=== PATIENT | male | born 1935 | race Caucasian/White ===

== ENCOUNTER 2016-11-17 14:11 | Emergency (ER) | payer MEDICARE, BC ==
[2016-11-17 16:16] LABS: Albumin 4.1 g/dL (3.2-5.2); C Reactive Protein 1.02 mg/L (< 5.00); Calcium 9.6 mg/dL (8.6-10.3); EGFR African American 91.8 (>60); EGFR Non-African American 71.4 (>60); Globulin 2.8 g/dL (2-4); Potassium 4.2 mmol/L (3.5-5.0); Total Bilirubin 0.6 mg/dL (0.2-1.0); Total Protein 6.9 g/dL (6.4-8.9)
[2016-11-17 16:21] LABS: Hematocrit 36 % (42-52); Hemoglobin 12.2 g/dl (14.0-18.0); Mean Corpuscular HGB Conc 34 g/dl (31-36); Mean Corpuscular Hemoglobin 31 pg (27-31); Mean Corpuscular Volume 91 fL (80-94); Mean Platelet Volume 9 um3 (7.4-10.4); Red Blood Count 3.94 10^6/ul (4.0-5.4); Red Cell Distribution Width 14 % (10.5-15); White Blood Count 6.2 10^3/ul (3.5-10.8)
[2016-11-17 17:28] VITALS: BP 164/94
--- NOTE | 2016-11-17 22:13 | ED ---
Tyree Higginbotham Erika, scribed for Gurpreet Seaman MD on 11/17/16 at 1458 . GI/ HPI - HPI Summary HPI Summary: Patient is an 81-year-old male presenting to the ED with a CC of rectal bleeding. Patient reports he had light spotting starting about 1 month ago. Today, patient had a more persistent episode of bleeding. He states he has rectal bleeding with stools, but the blood is not mixed in with the stool. Patient denies any pain or any other symptoms. He reports that he has noticed some blood in stool since starting cancer treatments. Pt has prostate CA, and finished radiation therapy in March 2016. He states he started hormone therapy in March 2016. Pt is followed by Dr. Hopper. Pt does report some leakage of stool at baseline, so he wears a diaper. Pt also reports he is on a blood thinner, which was change in May 2016 after a RLE angioplasty. Pt does not take prednisone. He notes he has an appointment with Dr. Dewey ( urology) scheduled for early November 2016. - History of Current Complaint Chief Complaint: EDGIBleed Time Seen by Provider: 11/17/16 14:47 Stated Complaint: RECTAL BLEEDING Hx Obtained From: Patient Onset/Duration: Started Weeks Ago, Atraumatic, Worse Since - today Timing: Intermittent Severity: Moderate Pain Intensity: 0 Associated Signs and Symptoms: Positive: Negative Aggravating Factor(s): Bowel Movement - Allergy/Home Medications Allergies/Adverse Reactions: Allergies Allergy/AdvReac Type Severity Reaction Status Date / Time Clopidogrel [From Plavix] Allergy SEIZURES Verified 12/15/15 13:14 PMH/Surg Hx/FS Hx/Imm Hx Endocrine/Hematology History: Denies: Hx Diabetes Cardiovascular History: Denies: Hx Congestive Heart Failure, Hx Hypertension, Hx Pacemaker/ICD History: Denies: Hx Renal Disease Sensory History: Denies: Hx Hearing Aid Psychiatric History: Denies: Hx Panic Disorder - Cancer History Cancer Type, Location and Year: TESTICULAR. PROSTATE Hx Chemotherapy: Yes Hx Radiation Therapy: Yes - Surgical History Surgery Procedure, Year, and Place: LYMPH NODE REMOVAL 1965 AND. 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 PERIPHERAL STENTING - Rt LEG - 3 STENTS PLACED (OK'D BY DR JAY). CATARACT - RUDOLPH LENS Infectious Disease History: No Infectious Disease History: Denies: Traveled Outside the [place] in Last 30 Days - Family History Known Family History: Negative: Cardiac Disease, Hypertension, Diabetes - Social History Alcohol Use: None Hx Substance Use: No Substance Use Type: Reports: None Hx Tobacco Use: No Smoking Status (MU): Never Smoked Tobacco Review of Systems Gastrointestinal: Other - Rectal bleeding Negative: Arthralgia, Myalgia All Other Systems Reviewed And Are Negative: Yes Physical Exam Triage Information Reviewed: Yes Vital Signs On Initial Exam: Initial Vitals Temp Pulse Resp BP Pulse Ox 98.1 F 66 17 153/87 99 11/17/16 14:12 11/17/16 14:12 11/17/16 14:12 11/17/16 14:12 11/17/16 14:12 Vital Signs Reviewed: Yes Appearance: Positive: Well-Appearing, No Pain Distress Skin: Positive: Warm, Skin Color Reflects Adequate Perfusion, Dry Head/Face: Positive: Normal Head/Face Inspection Eyes: Positive: Normal ENT: Positive: Normal ENT inspection Neck: Positive: Supple, Nontender Respiratory/Lung Sounds: Positive: Clear to Auscultation, Breath Sounds Present Cardiovascular: Positive: RRR Abdomen Description: Positive: Nontender, Soft Bowel Sounds: Positive: Present Male Genital Exam: Positive: other - No hemorrhoids Musculoskeletal: Positive: Normal Neurological: Positive: Normal Psychiatric: Positive: Affect/Mood Appropriate Diagnostics - Vital Signs Vital Signs Temp Pulse Resp BP Pulse Ox 11/17/16 14:12 98.1 F 66 17 153/87 99 - Laboratory Lab Results: Lab Results 11/17/16 11/17/16 Range/Units 15:55 15:55 WBC 6.2 (3.5-10.8) 10^3/ul RBC 3.94 L (4.0-5.4) 10^6/ul Hgb 12.2 L (14.0-18.0) g/dl Hct 36 L (42-52) % MCV 91 (80-94) fL MCH 31 (27-31) pg MCHC 34 (31-36) g/dl RDW 14 (10.5-15) % Plt Count 182 (150-450) 10^3/ul MPV 9 (7.4-10.4) um3 Neut % (Auto) 70.5 (38-83) % Lymph % (Auto) 16.0 L (25-47) % [place] % (Auto) 9.3 H (1-9) % Eos % (Auto) 3.8 (0-6) % Baso % (Auto) 0.4 (0-2) % Absolute Neuts (auto) 4.4 (1.5-7.7) 10^3/ul Absolute Lymphs (auto) 1.0 (1.0-4.8) 10^3/ul Absolute Monos (auto) 0.6 (0-0.8) 10^3/ul Absolute Eos (auto) 0.2 (0-0.6) 10^3/ul Absolute Basos (auto) 0 (0-0.2) 10^3/ul Absolute Nucleated RBC 0 10^3/ul Nucleated RBC % 0 Sodium 137 (133-145) mmol/L Potassium 4.2 (3.5-5.0) mmol/L Chloride 107 (101-111) mmol/L Carbon Dioxide 24 (22-32) mmol/L Anion Gap 6 (2-11) mmol/L BUN 16 (6-24) mg/dL Creatinine 1.00 (0.67-1.17) mg/dL Est GFR ( Amer) 91.8 (>60) Est GFR (Non-Af Amer) 71.4 (>60) BUN/Creatinine Ratio 16.0 (8-20) Glucose 89 (70-100) mg/dL Calcium 9.6 (8.6-10.3) mg/dL Total Bilirubin 0.60 (0.2-1.0) mg/dL AST 18 (13-39) U/L ALT 18 (7-52) U/L Alkaline Phosphatase 57 (34-104) U/L C-Reactive Protein 1.02 (< 5.00) mg/L Total Protein 6.9 (6.4-8.9) g/dL Albumin 4.1 (3.2-5.2) g/dL Globulin 2.8 (2-4) g/dL Albumin/Globulin Ratio 1.5 (1-3) Result Diagrams: 11/17/16 15:55 11/17/16 15:55 Lab Statement: Any lab studies that have been ordered have been reviewed, and results considered in the medical decision making process. Re-Evaluation - Re-Evaluation First Eval Re-Evaluation Time: 17:10 Comment: Lab results discussed. Discussed Dr. Hua's recommendations and plan for follow up with patient. GIGU Course/Dx - Course Course Of Treatment: Mr. Biswas has been having some rectal bleeding on and off for several weeks. It was particularily bad earlier today but seems to have slowed now. He had irradiation about 4-5 months ago for prostate CA and this may be proctitis. I spoke with Dr. Hua who is willing to follow him and cauterize if necessary. He will need to follow with cardiology first as he is on plavix. He will return if his bleeding increases. - Diagnoses Provider Diagnoses: Rectal bleed - Physician Notifications Discussed Care Of Patient With: Dr. Marie (oncology) at 15:54 - discussed case and treatments. Recommends GI consult. Dr. Hua (GI) at 16:58 - discussed case. will follow up with patient Discharge - Discharge Plan Condition: Stable Disposition: HOME Patient Education Materials: Rectal Bleeding (ED) Referrals: Bryan Haro DO [Primary Care Provider] - Chidi Hua MD [Medical Doctor] - Additional Instructions: Please follow up with your live out nanny first to discuss blood thinner. Then, follow up with Dr. Hua to consider colonoscopy. The documentation as recorded by the Tyree salinas Erika accurately reflects the service I personally performed and the decisions made by me, Gurpreet Seaman MD.
== END 2016-11-17 17:27 | disposition home or self-care (01) ==
LOC: ED 14:11
DX: K62.5 Hemorrhage of anus and rectum (principal); C61 Malignant neoplasm of prostate; Z79.02 Long term (current) use of antithrombotics/antiplatelets
CPT/HCPCS: 36415; 80053; 85025; 86140; 99282

== ENCOUNTER 2017-01-09 18:50 | Emergency (ER) | payer MEDICARE, BC ==
--- NOTE | 2017-01-09 21:38 | RAD ---
INDICATION: Fever COMPARISON: None TECHNIQUE: PA and lateral views of the chest were obtained. FINDINGS: The heart and mediastinum are normal in size and contour. The lungs are grossly clear. There is no evidence of large pleural effusion. Visualized bones are normal for the patient's age. There is no radiographic evidence of free air beneath the diaphragm IMPRESSION: No radiographic evidence of acute cardiopulmonary disease.
--- NOTE | 2017-01-09 21:41 | ED ---
Nazanin Higginbotham Salem, scribed for Lj Gentile MD on 01/09/17 at 2115 . HPI Febrile Illness - HPI Summary HPI Summary: Patient is a 81 y/o M who presents to the ED from doctors office with fever for the past 3 days. He reports that PCP requested further evaluation, CXR, and blood work. Pt states that he has been shaking for the past week and has had an intermittent fever of 102F. He denies a cough or SOB. He also denies taking any medication for sx. PMHx of prostate cancer and radiation therapy. - History of Current Complaint Chief Complaint: EDFever Time Seen by Provider: 01/09/17 21:01 Hx Obtained From: Patient, Family/[employer]ant [employer] Onset/Duration: Started Days Ago, Atraumatic, Still Present Timing: Intermittent, Lasting Days Initial Severity: Moderate Current Severity: Moderate Pain Intensity: 0 Pain Scale Used: 0-10 Numeric Aggravating Factors: Nothing Alleviating Factors: Nothing Associated Signs and Symptoms: Other: - Shakes. - Allergy/Home Medications Allergies/Adverse Reactions: Allergies Allergy/AdvReac Type Severity Reaction Status Date / Time Clopidogrel [From Plavix] Allergy SEIZURES Verified 12/15/15 13:14 Home Medications: Home Medications Atorvastatin* [Lipitor 20 MG*] 20 mg PO DAILY 01/09/17 [History Confirmed ] Brilinta 90 MG* 90 mg PO DAILY 01/09/17 [History Confirmed 01/09/17] Canasa SUPP (NF) 1,000 mg GA DAILY 01/09/17 [History Confirmed 01/09/17] Cholecalciferol 1,000 units PO DAILY 01/09/17 [History Confirmed 01/09/17] Docusate Calcium [Stool Softener] 240 mg PO 01/09/17 [History] PMH/Surg Hx/FS Hx/Imm Hx Endocrine/Hematology History: Denies: Hx Diabetes Cardiovascular History: Denies: Hx Congestive Heart Failure, Hx Hypertension, Hx Pacemaker/ICD History: Denies: Hx Renal Disease Sensory History: Denies: Hx Hearing Aid Psychiatric History: Denies: Hx Panic Disorder - Cancer History Cancer Type, 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 PERIPHERAL STENTING - Rt LEG - 3 STENTS PLACED (OK'D BY DR JAY). CATARACT - RUDOLPH LENS Infectious Disease History: No Infectious Disease History: Denies: Traveled Outside the [place] in Last 30 Days - Family History Known Family History: Negative: Cardiac Disease, Hypertension, Diabetes - Social History Alcohol Use: None Hx Substance Use: No Substance Use Type: Reports: None Hx Tobacco Use: No Smoking Status (MU): Never Smoked Tobacco Review of Systems Positive: Fever, Other - Shaking. Negative: Shortness Of Breath, Cough All Other Systems Reviewed And Are Negative: Yes Physical Exam Triage Information Reviewed: Yes Vital Signs On Initial Exam: Initial Vitals Temp Pulse Resp BP Pulse Ox 97.8 F 90 20 115/74 96 01/09/17 18:55 01/09/17 18:55 01/09/17 18:55 01/09/17 18:55 01/09/17 18:55 Vital Signs Reviewed: Yes Appearance: Positive: Well-Appearing, No Pain Distress Skin: Positive: Warm Head/Face: Positive: Normal Head/Face Inspection Eyes: Positive: KALI ENT: Positive: Hearing grossly normal Neck: Positive: Supple Respiratory/Lung Sounds: Positive: Clear to Auscultation, Breath Sounds Present Cardiovascular: Positive: RRR Abdomen Description: Positive: Nontender, Soft Bowel Sounds: Positive: Present Musculoskeletal: Positive: Strength/ROM Intact Neurological: Positive: Alert, Oriented to Person Place, Time Psychiatric: Positive: Affect/Mood Appropriate Diagnostics - Vital Signs Vital Signs Temp Pulse Resp BP Pulse Ox 01/09/17 20:10 98.9 F 89 15 103/65 97 01/09/17 18:55 97.8 F 90 20 115/74 96 - Laboratory Result Diagrams: 01/09/17 21:36 01/09/17 21:36 Lab Statement: Any lab studies that have been ordered have been reviewed, and results considered in the medical decision making process. - Radiology CXR Radiology Interpretation Completed By: Radiologist - IMPRESSION: No radiographic evidence of acute cardiopulmonary disease. Course/Dx - Course Course Of Treatment: 81 y/o M presents with fever for the past 3 days. He reports that PCP requested further evaluation, CXR, and blood work. Pt states that he has been shaking for the past week and has had an intermittent fever of 102F. He denies a cough or SOB. He also denies taking any medication for sx. CXR shows, per radiology,. IMPRESSION: No radiographic evidence of acute cardiopulmonary disease. Pt will be DC'd to follow up. - Diagnoses Provider Diagnoses: Febrile illness Discharge - Discharge Plan Condition: Stable Disposition: HOME Patient Education Materials: Fever in Adults (ED) Referrals: Bryan Haro DO [Primary Care Provider] - Additional Instructions: Please follow up with your primary care provider. The documentation as recorded by the Nazanin salinas Salem accurately reflects the service I personally performed and the decisions made by Seferino justice David, MD.
[2017-01-09 21:50] LABS: Hematocrit 37 % (42-52); Hemoglobin 12.2 g/dl (14.0-18.0); Mean Corpuscular HGB Conc 33 g/dl (31-36); Mean Corpuscular Hemoglobin 31 pg (27-31); Mean Corpuscular Volume 93 fL (80-94); Mean Platelet Volume 9 um3 (7.4-10.4); Red Blood Count 3.93 10^6/ul (4.0-5.4); Red Cell Distribution Width 13 % (10.5-15); White Blood Count 5.3 10^3/ul (3.5-10.8)
[2017-01-09 22:04] LABS: Albumin 3.9 g/dL (3.2-5.2); BUN/Creatinine Ratio 15.4 (8-20); Calcium 9.3 mg/dL (8.6-10.3); EGFR African American 67.8 (>60); EGFR Non-African American 52.7 (>60); Potassium 3.6 mmol/L (3.5-5.0); Total Bilirubin 0.8 mg/dL (0.2-1.0); Total Protein 6.9 g/dL (6.4-8.9)
[2017-01-09 23:01] LABS: Urine Bacteria Absent (Absent); Urine Bilirubin Negative (Negative); Urine Glucose Negative (Negative); Urine Nitrite Negative (Negative)
[2017-01-09 23:31] VITALS: BP 112/73
== END 2017-01-09 23:29 | disposition home or self-care (01) ==
LOC: ED 18:50
DX: R50.9 Fever, unspecified (principal)
CPT/HCPCS: 36415; 71020; 80053; 81003; 81015; 85025; 99283

== ENCOUNTER 2017-09-25 13:30 | Inpatient (IN) | payer MEDICARE, BC ==
[2017-09-25] MEDS ORDERED: Pantoprazole IV* 40 MG IV ONE (14:12)
[2017-09-25] MEDS ORDERED: NS 0.9% 1000 ML* 1,000 ML IV ONE (14:12)
[2017-09-25] MEDS ORDERED: Octreotide Acetate* 50 MCG in NS 0.9% 50 ML* 50 ML IVPB ONE (14:14)
[2017-09-25] MEDS ORDERED: Octreotide Acetate* 50 MCG/ML ML IV SLOW PU ONE (14:14)
[2017-09-25] MEDS ORDERED: Sodium Phosphate ADULT ENEMA* 118 ml bottle PR ONE (14:29)
[2017-09-25] MEDS ORDERED: Pantoprazole IV* 40 MG ONE (14:40)
[2017-09-25 14:44] LABS: ABS Basophils 0 10^3/ul (0-0.2); ABS Eosinophils 0.1 10^3/ul (0-0.6); ABS Lymphocytes 0.9 10^3/ul (1.0-4.8); ABS Monocytes 0.6 10^3/ul (0-0.8); ABS Neutrophils 9.2 10^3/ul (1.5-7.7); ABS Nucleated RBC 0 10^3/ul; Hematocrit 38 % (42-52); Hemoglobin 12.9 g/dl (14.0-18.0); Mean Corpuscular HGB Conc 34 g/dl (31-36); Mean Corpuscular Hemoglobin 32 pg (27-31); Mean Corpuscular Volume 92 fL (80-94); Mean Platelet Volume 8.2 um3 (7.4-10.4); Nucleated Red Blood Cells % 0; Platelet Count 166 10^3/ul (150-450); Red Blood Count 4.09 10^6/ul (4.0-5.4); Red Cell Distribution Width 13 % (10.5-15); White Blood Count 10.8 10^3/ul (3.5-10.8)
[2017-09-25 14:59] LABS: INR 0.94 (0.77-1.02)
[2017-09-25] MEDS ORDERED: Ondansetron INJ* 2 MG/ML VIAL IV PRN (15:22)
[2017-09-25] MEDS ORDERED: Acetaminophen TAB* 325 MG PO PRN (15:22)
[2017-09-25] MEDS ORDERED: NS 0.9% 1000 ML* 1,000 ML IV SCH (15:30)
[2017-09-25] MEDS: Ciprofloxacin 400MG IVPREMIX(* 400 MG/200 ML BAG IVPB SCH (17:01)
--- NOTE | 2017-09-25 17:03 | ED ---
Ajay Higginbotham Julia, scribed for Catalino Hernandez on 09/25/17 at 1431 . GI/ HPI - HPI Summary HPI Summary: This patient is a 82 year old M presenting to [facility] with a chief complaint of rectal bleeding since midnight. He states he has had rectal bleeding every hour since then. Patient denies hematemesis and abdominal pain. Pt denies history of hemorrhoids. He states he spoke with Dr. Hua earlier today, and was told to come to the ED. Patient is taking ASA. He reports radiation tx for prostate CA beginning December of 2015 to March 2016. Patient denies chemotherapy tx. - History of Current Complaint Chief Complaint: EDGIBleed Time Seen by Provider: 09/25/17 14:04 Stated Complaint: BLOODY STOOL Hx Obtained From: Patient Onset/Duration: Started Hours Ago Timing: Intermittent - every hour Pain Intensity: 0 Location of Pain: None Associated Signs and Symptoms: Positive: Bright Red Blood w/Stool. Negative: Hematemesis, External Hemorrhoid - Allergy/Home Medications Allergies/Adverse Reactions: Allergies Allergy/AdvReac Type Severity Reaction Status Date / Time clopidogrel Allergy Severe See Comment Verified 09/25/17 15:35 Home Medications: Home Medications Calcium Polycarbophil TAB* [Fibercon TAB*] 625 mg PO DAILY 09/25/17 [History Confirmed 09/25/17] Cholecalciferol TAB* [Vitamin D TAB*] 1,000 unit PO DAILY 09/25/17 [History Confirmed 09/25/17] Multivitamins/Minerals TAB* [Theragran/minerals TAB*] 1 tab PO DAILY 09/25/17 [ History Confirmed 09/25/17] Polyethylene Glycol 3350* [Miralax*] 17 gm PO .MOWESA 09/25/17 [History Confirmed 09/25/17] Ticagrelor* [Brilinta*] 90 mg PO DAILY 09/25/17 [History Confirmed 09/25/17] PMH/Surg Hx/FS Hx/Imm Hx Endocrine/Hematology History: Denies: Hx Diabetes Cardiovascular History: Denies: Hx Congestive Heart Failure, Hx Hypertension, Hx Pacemaker/ICD History: Denies: Hx Renal Disease Sensory History: Denies: Hx Hearing Aid Psychiatric History: Denies: Hx Panic Disorder - Cancer History Cancer Type, 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 PERIPHERAL STENTING - Rt LEG - 3 STENTS PLACED (OK'D BY DR JAY). CATARACT - RUDOLPH LENS Infectious Disease History: No Infectious Disease History: Denies: Traveled Outside the [place] in Last 30 Days - Family History Known Family History: Negative: Cardiac Disease, Hypertension, Diabetes - Social History Alcohol Use: None Hx Substance Use: No Substance Use Type: Reports: None Hx Tobacco Use: No Smoking Status (MU): Never Smoked Tobacco Review of Systems Negative: Fever Gastrointestinal: Negative - hematemsis Negative: Abdominal Pain All Other Systems Reviewed And Are Negative: Yes Physical Exam - Summary Physical Exam Summary: Appearance: Well appearing, no pain distress Skin: warm, dry, reflects adequate perfusion Head/face: normal Eyes: EOMI, KALI ENT: normal Neck: supple, non-tender Respiratory: CTA, breath sounds present Cardiovascular: RRR, pulses symmetrical Abdomen: non-tender, soft Bowel: present Musculoskeletal: normal, strength/ROM intact Neuro: normal, sensory motor intact, A&Ox3 Rectal: fresh rectal bleeding Triage Information Reviewed: Yes Vital Signs On Initial Exam: Initial Vitals Temp Pulse Resp BP Pulse Ox 98.6 F 112 18 186/94 98 09/25/17 13:34 09/25/17 13:34 09/25/17 13:34 09/25/17 13:34 09/25/17 13:34 Vital Signs Reviewed: Yes Diagnostics - Vital Signs Vital Signs Temp Pulse Resp BP Pulse Ox 09/25/17 13:34 98.6 F 112 18 186/94 98 - Laboratory Lab Results: Lab Results 09/25/17 09/25/17 09/25/17 Range/Units 14:30 14:30 14:30 WBC 10.8 (3.5-10.8) 10^3/ul RBC 4.09 (4.0-5.4) 10^6/ul Hgb 12.9 L (14.0-18.0) g/dl Hct 38 L (42-52) % MCV 92 (80-94) fL MCH 32 H (27-31) pg MCHC 34 (31-36) g/dl RDW 13 (10.5-15) % Plt Count 166 (150-450) 10^3/ul MPV 8.2 (7.4-10.4) um3 Neut % (Auto) 85.0 H (38-83) % Lymph % (Auto) 8.0 L (25-47) % [place] % (Auto) 5.9 (0-7) % Eos % (Auto) 1.0 (0-6) % Baso % (Auto) 0.1 (0-2) % Absolute Neuts (auto) 9.2 H (1.5-7.7) 10^3/ul Absolute Lymphs (auto) 0.9 L (1.0-4.8) 10^3/ul Absolute Monos (auto) 0.6 (0-0.8) 10^3/ul Absolute Eos (auto) 0.1 (0-0.6) 10^3/ul Absolute Basos (auto) 0 (0-0.2) 10^3/ul Absolute Nucleated RBC 0 10^3/ul Nucleated RBC % 0 INR (Anticoag Therapy) 0.94 (0.77-1.02) APTT 28.1 (26.0-36.3) seconds Sodium 140 (139-145) mmol/L Potassium 4.3 (3.5-5.0) mmol/L Chloride 106 (101-111) mmol/L Carbon Dioxide 24 (22-32) mmol/L Anion Gap 10 (2-11) mmol/L BUN 26 H (6-24) mg/dL Creatinine 1.16 (0.67-1.17) mg/dL Est GFR ( Amer) 77.1 (>60) Est GFR (Non-Af Amer) 60.0 (>60) BUN/Creatinine Ratio 22.4 H (8-20) Glucose 125 H (70-100) mg/dL Calcium 10.0 (8.6-10.3) mg/dL Total Bilirubin 0.80 (0.2-1.0) mg/dL AST 21 (13-39) U/L ALT 24 (7-52) U/L Alkaline Phosphatase 51 (34-104) U/L Total Protein 7.4 (6.4-8.9) g/dL Albumin 4.3 (3.2-5.2) g/dL Globulin 3.1 (2-4) g/dL Albumin/Globulin Ratio 1.4 (1-3) Lipase 20 (11.0-82.0) U/L Blood Type Antibody Screen 09/25/17 Range/Units 14:30 WBC (3.5-10.8) 10^3/ul RBC (4.0-5.4) 10^6/ul Hgb (14.0-18.0) g/dl Hct (42-52) % MCV (80-94) fL MCH (27-31) pg MCHC (31-36) g/dl RDW (10.5-15) % Plt Count (150-450) 10^3/ul MPV (7.4-10.4) um3 Neut % (Auto) (38-83) % Lymph % (Auto) (25-47) % [place] % (Auto) (0-7) % Eos % (Auto) (0-6) % Baso % (Auto) (0-2) % Absolute Neuts (auto) (1.5-7.7) 10^3/ul Absolute Lymphs (auto) (1.0-4.8) 10^3/ul Absolute Monos (auto) (0-0.8) 10^3/ul Absolute Eos (auto) (0-0.6) 10^3/ul Absolute Basos (auto) (0-0.2) 10^3/ul Absolute Nucleated RBC 10^3/ul Nucleated RBC % INR (Anticoag Therapy) (0.77-1.02) APTT (26.0-36.3) seconds Sodium (139-145) mmol/L Potassium (3.5-5.0) mmol/L Chloride (101-111) mmol/L Carbon Dioxide (22-32) mmol/L Anion Gap (2-11) mmol/L BUN (6-24) mg/dL Creatinine (0.67-1.17) mg/dL Est GFR ( Amer) (>60) Est GFR (Non-Af Amer) (>60) BUN/Creatinine Ratio (8-20) Glucose (70-100) mg/dL Calcium (8.6-10.3) mg/dL Total Bilirubin (0.2-1.0) mg/dL AST (13-39) U/L ALT (7-52) U/L Alkaline Phosphatase (34-104) U/L Total Protein (6.4-8.9) g/dL Albumin (3.2-5.2) g/dL Globulin (2-4) g/dL Albumin/Globulin Ratio (1-3) Lipase (11.0-82.0) U/L Blood Type O Positive Antibody Screen Negative Result Diagrams: 09/25/17 14:30 09/25/17 14:30 Lab Statement: Any lab studies that have been ordered have been reviewed, and results considered in the medical decision making process. GIGU Course/Dx - Course Course Of Treatment: Pt presnts c/o rectal bleeding since midnight. He states he has had rectal bleeding every hour since then. Exam reveals fresh rectal bleeding. Dr. Hua and Dr. Macdonald recommend an enema. Pt is given Protonix, Zofran, Apresoline, Lipitor, Tylenol, Flomax, and IV fluids. Bloodwork reveals Hct of [address] 12[address] Delgado agrees to admit this patient. - Diagnoses Differential Diagnoses - Male: Gastroenteritis (Bacterial), Other - GI BLEEDING/ ANEMIA Provider Diagnoses: GI bleed - Physician Notifications Discussed Care Of Patient With: Mari Delgado - hospitalist Time Discussed With Above Provider: 14:50 Instructed by Provider To: Admit As Inpatient - Critical Care Time Critical Care Time: 30-74 min Discharge - Sign-Out/Discharge Documenting (check all that apply): Discharge - admit - Discharge Plan Condition: Stable Disposition: ADMITTED TO [facility] - Billing Disposition and Condition Condition: STABLE [place] [place] Consult: Both Dr. Hua and Dr. Macdonald recommend an enema and and endoscope. Dr. Delgado agrees to admit patient. The documentation as recorded by the Ajay salinas Julia accurately reflects the service I personally performed and the decisions made by , Catalino Hernandez.
[2017-09-25] MEDS: metroNIDAZOLE IV 500 MG/100ML* 500 MG/100 ML BAG IVPB SCH (18:15)
[2017-09-25 18:31] LABS: Urine Appearance Clear; Urine Blood 2+ (Negative); Urine Color Yellow; Urine Ketones Negative (Negative); Urine Protein Negative (Negative); Urine Specific Gravity 1.014 (1.010-1.030); Urine Urobilinogen Negative (Negative)
[2017-09-25 19:33] LABS: Hematocrit 34 % (42-52); Hemoglobin 11.7 g/dl (14.0-18.0)
[2017-09-25] MEDS: Tamsulosin CAP* 0.4 MG PO SCH (20:21)
[2017-09-25] MEDS: Hydrocortisone SUPP* 25 MG SUPP (2.5%) PR SCH (20:21)
--- NOTE | 2017-09-25 20:48 | HP ---
CC: Dr. Lam; Dr. Phillips * HISTORY AND PHYSICAL: DATE OF ADMISSION: 09/25/17 PRIMARY CARE PROVIDER: Dr. Lam. ATTENDING PHYSICIAN WHILE IN THE HOSPITAL: Dr. Delgado * (report dictated by John Stewart NP). CONSULTING CREAM HAULER: Dr. Phillips. CHIEF COMPLAINT: Bright red blood per rectum. HISTORY OF PRESENT ILLNESS: Mr. Biswas is an 82-year-old male patient. He carries a history of hypertension; hyperlipidemia; peripheral arterial disease; BPH; and a history of prostate cancer, status post radiation of therapy and hormonal therapy. He comes in to our ER today. He states he recently was just at Dr. James's office, i.e., the patient's vascular surgeon who has been helping him with his PAD. He went there and was doing well, but unfortunately at 1 o'clock this morning, started having bright red blood per rectum, which had been getting progressively worse. He had been having bright red blood per rectum about every hour on the hour. He is passing clots. He was concerned because it was not going away and by this morning, he decided to come in to the ER to be evaluated. He denies feeling any chest pain. Denies any shortness of breath. Denies feeling like he is going to faint. Denies having any lightheadedness. Denies having any abdominal pain with this, but because of the bright red blood per rectum, we were asked to evaluate for admission. PAST MEDICAL HISTORY: Significant for: 1. Hypertension. 2. Hyperlipidemia. 3. PAD. 4. BPH. 5. History of prostate cancer. PAST SURGICAL HISTORY: 1. The patient has had stents to his right lower extremity. 2. He has had an angioplasty of the left lower extremity. 3. He has had an orchiectomy with lymph node resection. MEDICATIONS: His home medications include: 1. Brilinta 90 mg p.o. daily. 2. MiraLAX 17 g p.o. Saturday, Saturday, Saturday. 3. Multivitamin 1 tablet daily. 4. Vitamin D 1000 units p.o. daily. 5. FiberCon 625 mg p.o. daily. 6. Flomax 0.4 mg daily. 7. Altace 10 mg p.o. daily. 8. Lipitor 20 mg p.o. daily. 9. Aspirin 81 mg daily. ALLERGIES TO MEDICATIONS: Include PLAVIX. FAMILY HISTORY: His mother, he says, of old age. Father did have a history of cancer of his prostate. SOCIAL HISTORY: He does not smoke. He does not drink. Surrogate decision maker is his . REVIEW OF SYSTEMS: There is no documented fever. He denied having any significant weight change. There was no double vision. There is no ear discharge. He denies having any rhinorrhea. There is no sore throat. No thyroid enlargement. Denies having any chest pain. There is no orthopnea. There is no nocturnal dyspnea. There is no abdominal pain. There is no nausea. There is no vomiting. There is no dysuria. There is no frequency. There is no seizure. There was no loss of consciousness. There is no pruritus and no skin ulcerations. Review of 14 systems was completed, all others negative. PHYSICAL EXAMINATION GENERAL: At this time, Mr. Biswas is an 82-year-old male patient. He appears to be well nourished, well developed. He is sitting on the ED stretcher. He does not appear to be in any acute distress. VITAL SIGNS: Blood pressure 180/92 with a pulse of 70, respirations were 15, O2 sat 98%, temperature 98.6. HEENT: Head: Atraumatic and normocephalic. Eyes: EOMs are intact. Sclerae were anicteric and not pale. Throat: Oral mucosa appears to be moist. No oropharyngeal erythema. NECK: Supple. LUNGS: Clear to auscultation bilaterally. No wheezes, rales, or rhonchi. HEART: Sounds S1, S2. Regular rate and rhythm. No murmurs, rubs, or gallops. ABDOMEN: Soft, flat, nontender. Bowel sounds were present. EXTREMITIES: Pulses were 2+ throughout. The patient is moving all 4 extremities with 5/5 strength. NEUROLOGIC: The patient is awake. He is alert. He is oriented x3. His tongue is midline. Cold Rolling Coordinator are equal. He had no gross focal deficits. SKIN: Intact. LABORATORY DATA/DIAGNOSTIC STUDIES: Labs revealed WBC of 10.8; RBC of 4.09; hemoglobin was 12.9, this is right near to actually his baseline; hematocrit was 38; platelet count of 166. INR was 0.94, PTT of 28.1. His sodium was 140, potassium was 4.3, chloride of 106, bicarb 24, BUN 26, creatinine 1.16, glucose 125, calcium was 10. Total bili is 0.8, AST 21, ALT 24, alk phos 51. Lipase of 20. Old medical records were reviewed. ASSESSMENT AND PLAN: Mr. Biswas is an 82-year-old male patient coming in to the ED today with complaints of bright red blood per rectum. We were asked to evaluate for admission due to this. He will be admitted under inpatient status for: 1. Lower gastrointestinal bleed. Again, this could be from radiation proctitis or it could be possibly from a diverticular bleed. The plan would be go ahead and admit the patient while we get serial hemoglobins. I also will get GI involved, actually planning on taking him for flex sig today to evaluate for the source of the bleeding may be coming from. I did touch base with Dr. James's office. We are going to be holding his Brilinta, his last stenting was over 2 years ago. For the time being, we will hold Brilinta and the aspirin. Continue his statin therapy and we will continue to follow. 2. History of peripheral arterial disease. Aspirin and Brilinta, we are going to hold until we know the extent of the bleeding and then we will continue Lipitor and I did have a call placed to Dr. James. 3. History of benign prostatic hypertrophy. Continue Flomax. 4. Prostate cancer. Follow up with his primary care provider. 5. Hypertension. Blood pressure is in the 180s. I did order p.r.n. hydralazine. I am holding the LUIS inhibitor in the setting of acute illness and we will treat his blood pressure to try to get it less than 180. 6. DVT prophylaxis: He will be placed on SCDs. 7. Code status: Full code. 8. Fluids, electrolytes, and nutrition. He is on clear liquid diet. TIME SPENT: On admission 60 minutes, greater than half the time was spent face- to- face with the patient obtaining my history and physical, other half the time was spent going over the plan of care with the patient and implementing plan of care. I did discuss the plan of care with my attending, Dr. Delgado, she is in agreement. JOHN STEWART NP [id number]/[facility] #: [id number] HANNA
--- NOTE | 2017-09-25 21:06 | CONS ---
CC: Dr. Sherie Lam CONSULTATION NOTE: DATE OF CONSULT: 09/25/17 REFERRING PHYSICIAN: Dr. Sherie Lam. REASON FOR CONSULT: Thank you for asking me to see Mr. Biswas. As you know, he is a pleasant 82-yea r-old male with a history of prostate cancer, status post radiation therapy back in 2016. The patien t was scheduled to see Dr. Hua tomorrow in the office for evaluation of rectal bleeding. His rec geno bleeding has progressed again last night and he presented to the emergency room. The patient mary cribes rectal bleeding since midnight with frequent bright red blood per rectum. He is on aspirin and Plavix for prior stent placement in 2016. The patient denies any abdominal pain or diarrhea. In fa ct, he has chronic constipation for which he has recently started MiraLAX. The patient has not under gone prior colonoscopy. He denies any rectal pain. The patient has presented to the emergency room on a few occasions in the past year for intermittent rectal bleeding. He has never had ongoing bleed ing as he has since last night. Vital signs are stable. PAST MEDICAL HISTORY: Significant for prostate cancer, status post radiation therapy, hyperlipidemia , coronary artery disease, status post stent placement. MEDICATIONS: Currently include: 1. Lipitor. 2. Brilinta. 3. Aspirin. 4. MiraLAX. 5. Tamsulosin. ALLERGIES: PLAVIX. SOCIAL HISTORY: The patient lives at home with his . There is no alcohol abuse. Noncontributor y. REVIEW OF SYSTEMS: A 10-point review of systems is performed and is otherwise negative. PHYSICAL EXAM: Mr. Biswas is a well-appearing 82-year-old male. Temperature is 98, heart rate of 90 , and blood pressure is 180/92. HEENT: There is no scleral icterus. Heart is regular rate and rhyt hm. Lungs are clear. Abdomen is soft. There is no tenderness. Bowel sounds are present. There is no distention. Rectal exam reveals bright red blood. Skin is warm and dry. Extremities without moses ma. DIAGNOSTIC STUDIES/LAB DATA: Include a white blood cell count of 10.8, hematocrit of 38, platelet co unt of 166, INR of 0.94, BUN of 26, creatinine of 1.16. IMPRESSION: Mr. Biswas presents with bright red blood per rectum on multiple occasions since last ni ght. I do suspect radiation proctitis as etiology of his rectal bleeding. I have decided to perform a semi-urgent flexible sigmoidoscopy today. The patient has been given a fleet enema in the emergen cy room. PLAN: Plan has been discussed with the patient and family and they are in agreement. Further recomm endations based on the results of sigmoidoscopy. [id number]/[facility] #: [id number]
[2017-09-26 01:02] LABS: Hematocrit 33 % (42-52); Hemoglobin 11.3 g/dl (14.0-18.0)
[2017-09-26] MEDS: metroNIDAZOLE IV 500 MG/100ML* 500 MG/100 ML BAG IVPB SCH ×3 (02:19→17:48)
[2017-09-26] MEDS: Ciprofloxacin 400MG IVPREMIX(* 400 MG/200 ML BAG IVPB SCH ×2 (04:36→16:36)
[2017-09-26 06:43] LABS: ABS Basophils 0 10^3/ul (0-0.2); ABS Eosinophils 0.1 10^3/ul (0-0.6); ABS Lymphocytes 1.1 10^3/ul (1.0-4.8); ABS Monocytes 0.6 10^3/ul (0-0.8); ABS Nucleated RBC 0 10^3/ul; Eosinophil % 1.8 % (0-6); Hematocrit 31 % (42-52); Lymphocyte % 14.1 % (25-47); Mean Corpuscular HGB Conc 35 g/dl (31-36); Mean Corpuscular Hemoglobin 32 pg (27-31); Mean Corpuscular Volume 92 fL (80-94); Mean Platelet Volume 8.9 um3 (7.4-10.4); Nucleated Red Blood Cells % 0; Platelet Count 133 10^3/ul (150-450); Red Cell Distribution Width 13 % (10.5-15); White Blood Count 7.9 10^3/ul (3.5-10.8)
[2017-09-26 06:58] LABS: EGFR Non-African American 61.8 (>60)
[2017-09-26] MEDS: Hydrocortisone SUPP* 25 MG SUPP (2.5%) PR SCH ×2 (10:36→21:46)
[2017-09-26] MEDS: Atorvastatin* 20 MG TAB PO SCH (10:36)
[2017-09-26] MEDS ORDERED: Iohexol 350* (CONTRAST) 500 ML MDV IV ONE (12:40)
--- NOTE | 2017-09-26 14:50 | PRO ---
CC: Dr. Sherie Lam GASTROENTEROLOGY PROCEDURE NOTE: DATE OF PROCEDURE: 09/25/17 REFERRING PHYSICIAN: Dr. Sherie Lam. PROCEDURE: Flexible sigmoidoscopy to transverse colon. PREOPERATIVE DIAGNOSIS: Bright red blood per rectum since midnight in this 82-year- old male who den ies any abdominal pain or diarrhea. The patient does have a history of radiation therapy for prostat e cancer. His hematocrit is stable at 38 as are his vital signs. POSTOPERATIVE DIAGNOSES: 1. 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 The tissue wa s quite friable and there is some active oozing distally in the rectum. Photograph is obtained. 2. Evidence of severe ischemic colitis from 30 to 50 cm from the anus. Multiple photographs obtaine d. There is old and new blood present throughout this area of the colon, so this does not appear to be backwash. 3. Normal splenic flexure and transverse colon without any bleeding or source of bleeding noted. PROCEDURE MEDICATIONS: None. INSTRUMENT: CF-190 Olympus variable high-definition colonoscope. DESCRIPTION OF PROCEDURE: Informed consent was obtained prior to performing this procedure. The ins trument was introduced into the anus and passed to the rectum under direct visualization. In the rec darrel, there was quite friable tissue distally with some mild oozing noted from radiation proctitis. T his extended up to about 5 cm from the anus. From 5 cm to 30 cm was normal-appearing tissue with min imal blood noted. From 30 to 50 cm from the anus, there was evidence of severe ischemic colitis. Mu ltiple photographs were obtained. Some mild oozing was noted throughout this area. The instrument w as withdrawn from the patient. The patient tolerated the procedure well and there were no complicati ons. Digital examination revealed just bright red blood. RECOMMENDATIONS: I have discussed the patient with the hospitalist. He will be on a clear liquid di et. IV Cipro and IV Flagyl will be commenced. I have also started Anusol-HC suppositories b.i.d. T he patient's Brilinta will be held this evening. If the patient requires further therapy such as arg on plasma coagulation of the radiation proctitis, it would be most ideal to hold the Brilinta for a f ew days; however, given the presence of the ischemic colitis, this is a difficult decision. The nati ent's hematocrit will be monitored and transfused p.r.n. [id number]/[facility] #: [id number]
[2017-09-26] MEDS: hydrALAZINE IV* 20 MG/ML VIAL IV SLOW PU PRN (16:02)
--- NOTE | 2017-09-26 16:42 | PN ---
Subjective Interval History: Pt w/o abdominal pain. No BMs (or blood )since yesterday. By afternoon did have BM with reportedly some blood but RN did not see it and patient himself says to med he did not see it (though he told RN that more formed and less blood). CT angio abd performed, read pending. Objective Active Medications: Acetaminophen (Tylenol Tab*) 650 mg PO Q4H PRN PRN Reason: FEVER/PAIN Atorvastatin Calcium (Lipitor*) 20 mg PO DAILY [facility] Last Admin: 09/26/17 10:36 Dose: 20 mg Hydralazine HCl (Apresoline Iv*) 5 mg IV SLOW PU Q6H PRN PRN Reason: BLOOD PRESSURE Last Admin: 09/26/17 16:02 Dose: 5 mg Hydrocortisone (Anusol Hc Supp*) 25 mg IA BID [facility] Last Admin: 09/26/17 10:36 Dose: 25 mg Ciprofloxacin/Dextrose (Cipro 400 Mg Ivpremix(*)) 400 mg in 200 mls @ 200 mls/ hr IVPB Q12H [facility] Last Admin: 09/26/17 04:36 Dose: 200 mls/hr Metronidazole/Sodium Chloride (Flagyl 500 Mg Ivpb*) 500 mg in 100 mls @ 100 mls /hr IVPB Q8H [facility] Last Admin: 09/26/17 10:35 Dose: 100 mls/hr Ondansetron HCl (Zofran Inj*) 4 mg IV Q6H PRN PRN Reason: NAUSEA Tamsulosin HCl (Flomax Cap*) 0.4 mg PO BEDTIME [facility] Last Admin: 09/25/17 20:21 Dose: 0.4 mg Vital Signs - 8 hr 09/26/17 09/26/17 09/26/17 09:17 09:23 11:09 Temperature 98.4 F Pulse Rate 64 72 Respiratory 18 18 18 Rate Blood Pressure 150/65 136/67 (mmHg) O2 Sat by Pulse 98 97 Oximetry 09/26/17 09/26/17 09/26/17 11:56 14:19 15:52 Temperature 98.1 F 98.5 F 98.7 F Pulse Rate 66 64 Respiratory 18 16 Rate Blood Pressure 163/74 182/89 (mmHg) O2 Sat by Pulse 98 98 Oximetry 09/26/17 16:28 Temperature Pulse Rate 69 Respiratory Rate Blood Pressure 179/81 (mmHg) O2 Sat by Pulse Oximetry Oxygen Devices in Use Now: None Appearance: NAD Eyes: No Scleral Icterus, PERRLA Ears/Nose/Mouth/Throat: NL Teeth, Lips, Gums, Mucous Membranes Moist Neck: NL Appearance and Movements; NL JVP, Trachea Midline Respiratory: Symmetrical Chest Expansion and Respiratory Effort, Clear to Auscultation Cardiovascular: NL Sounds; No Murmurs; No JVD, RRR Abdominal: NL Sounds; No Tenderness; No Distention, No Hepatosplenomegaly Extremities: No Edema, No Clubbing, Cyanosis Skin: No Rash or Ulcers, No Nodules or Sclerosis Neurological: Alert and Oriented x 3, NL Sensation, NL Muscle Strength and Tone Nutrition: Taking PO's Result Diagrams: 09/26/17 05:55 09/26/17 05:55 Additional Lab and Data: Laboratory Results - last 24 hr 09/26/17 09/26/17 09/26/17 00:51 05:55 05:55 WBC 7.9 RBC 3.40 L Hgb 11.3 L 11.0 L Hct 33 L 31 L MCV 92 MCH 32 H MCHC 35 RDW 13 Plt Count 133 L MPV 8.9 Neut % (Auto) 76.6 Lymph % (Auto) 14.1 L [place] % (Auto) 7.1 H Eos % (Auto) 1.8 Baso % (Auto) 0.4 Absolute Neuts (auto) 6.0 Absolute Lymphs (auto) 1.1 Absolute Monos (auto) 0.6 Absolute Eos (auto) 0.1 Absolute Basos (auto) 0 Absolute Nucleated RBC 0 Nucleated RBC % 0 Sodium 139 Potassium 3.9 Chloride 108 Carbon Dioxide 22 Anion Gap 9 BUN 19 Creatinine 1.13 Est GFR ( Amer) 79.5 Est GFR (Non-Af Amer) 61.8 BUN/Creatinine Ratio 16.8 Glucose 115 H Calcium 8.6 Assess/Plan/Problems-Billing Assessment: 82 yo male PMH HTN, PAD with RLE stent on brilinta, aspirin (2016), prostate Cancer s/p radiation p/w BRBPR. s/p flex sig with e/o ischemic colitis and radiation proctitis. #Ischemic colitis with hematochezia - appreciate GI assistance. f/u recs - no abdominal pain, continue serial exams - lactic acid wnl - monitor BMs - clear liquid diet - consideration for Argon proton coagulation on Saturday - continue to hold brilinta (Dr. James is vascular surgeon) - continue cipro/flagyl - continue hydrocortisone suppository - f/u CT abd/pelvis angiogram #HTN - ramipril 10mg daily held. got CT contrast today. - hydralazine prn - add amlodipine 5mg today. #HLD - continue lipitor 20mg daily #BPH - continue flomax. CODE: FULL Diet: clear liquid dispo: medicine inpatient.
[2017-09-26] MEDS: amLODIPine TAB* 5 MG PO SCH (21:44)
[2017-09-26] MEDS: Tamsulosin CAP* 0.4 MG PO SCH (21:44)
[2017-09-27] MEDS: metroNIDAZOLE IV 500 MG/100ML* 500 MG/100 ML BAG IVPB SCH ×3 (03:00→17:07)
[2017-09-27] MEDS: Ciprofloxacin 400MG IVPREMIX(* 400 MG/200 ML BAG IVPB SCH ×2 (05:02→15:57)
[2017-09-27 06:11] LABS: ABS Basophils 0 10^3/ul (0-0.2); ABS Eosinophils 0.2 10^3/ul (0-0.6); ABS Monocytes 0.5 10^3/ul (0-0.8); ABS Neutrophils 5.8 10^3/ul (1.5-7.7); ABS Nucleated RBC 0 10^3/ul; Eosinophil % 2.3 % (0-6); Hematocrit 33 % (42-52); Hemoglobin 11.6 g/dl (14.0-18.0); Lymphocyte % 13.9 % (25-47); Mean Corpuscular HGB Conc 35 g/dl (31-36); Mean Corpuscular Hemoglobin 32 pg (27-31); Mean Corpuscular Volume 91 fL (80-94); Mean Platelet Volume 8.7 um3 (7.4-10.4); Nucleated Red Blood Cells % 0; Platelet Count 138 10^3/ul (150-450); Red Cell Distribution Width 13 % (10.5-15); White Blood Count 7.5 10^3/ul (3.5-10.8)
[2017-09-27 06:29] LABS: EGFR Non-African American 68.8 (>60)
--- NOTE | 2017-09-27 08:24 | PN ---
CC: Dr. Hua GASTROENTEROLOGY PROGRESS NOTE: DATE OF FOLLOWUP: 09/26/17 HISTORY: Mr. Biswas has had no further bleeding overnight or this morning. His hematocrit did drop from 38 to 31. He has had no bowel movements either. He denies any abdominal pain. He is toleratin g clear liquids well. He is on IV antibiotics for the ischemic colitis, and on Anusol hydrocortisone suppositories b.i.d. for the radiation proctitis. I have discussed the patient with the hospitalist and Dr. Hua. We are trying to get in touch with the patient's vascular doctor. Apparently, the patient was scheduled for an interventional procedure tomorrow for additional blockages in the legs. This was canceled due to his hospitalization. The decision here to be made is whether to continue to hold the Brilinta and perform flexible sigmoidoscopy after five days off the Brilinta with argon-p lasma coagulation of the radiation proctitis versus restarting the Brilinta today or tomorrow and ass essing the situation if the patient has further bleeding. My suspicion, given the fact that the nati ent was scheduled to have further intervention in his legs, is that his vascular physician would pref er not to have the Brilinta stopped for five days. I have ordered a CT angiogram of the abdomen give n the presence with ischemic colitis despite being on aspirin and Brilinta. The patient is afebrile with stable vital signs and has no complaints. RECOMMENDATIONS: I think it is imperative to get in touch with the patient's vascular surgeon to dis cuss the situation, and I suspect that he will want the Brilinta restarted, and then will have to edwige ssess if the patient has further bleeding. Continue IV antibiotics and clear liquids. The diet can likely be advanced to full liquids tomorrow and low-fiber diet over the weekend. [id number]/[facility] #: [id number]
[2017-09-27] MEDS: Atorvastatin* 20 MG TAB PO SCH (09:04)
[2017-09-27] MEDS: Hydrocortisone SUPP* 25 MG SUPP (2.5%) PR SCH ×2 (09:04→21:09)
[2017-09-27] MEDS: amLODIPine TAB* 5 MG PO SCH (09:04)
--- NOTE | 2017-09-27 16:28 | RAD ---
INDICATION: Lower GI bleed in a vasculopath COMPARISON: CT of the abdomen and pelvis dated October 26, 2015 TECHNIQUE: Axial source images were acquired of the abdomen and pelvis utilizing CT angiographic technique with injection of 100 mL Omnipaque 350. Coronal and sagittal reconstructed images were acquired. 3-D volume rendered images were obtained. FINDINGS: Unless otherwise specified comparisons below reference the October 26, 2015 CT examination. Vascular findings: Coarse calcification and stents are seen at the coronary arteries. There is coarse calcification at the mitral valve. The abdominal aorta exhibits coarse atherosclerotic calcification. There is no definite dissection or pathologic aneurysmal dilatation. There is coarse calcification at the origins of the celiac trunk and superior mesenteric artery but patency appears to be maintained. More distally at the superior mesenteric artery there is eccentric mural calcification causing mild stenosis (image 72). There is coarse calcification at the origin of the inferior mesenteric artery but the artery appears to fill adequately with contrast at least at its proximal portion. There is coarse calcification at the origins of the bilateral renal arteries causing at least moderate stenosis, though attenuation caused by coarse calcium limits evaluation of the lumens. Calcified atherosclerosis at the lower abdominal aorta extending the bilateral common iliac arteries. Contrast is seen filling continuously as far as the proximal superficial femoral arteries bilaterally. There is coarse eccentric calcified atherosclerosis of the bilateral common femoral arteries, worse on the right than the left. Nonvascular findings: The visualized lung bases are grossly clear without mass or pleural effusion. There are no suspicious lesions in the liver. The spleen, pancreas and right adrenal gland are normal. At the lateral limb of the left adrenal gland there is a 6 mm fat density structure unchanged since the previous CT examination. The gallbladder is normal in appearance. On the arterial phase images the renal cortices enhance symmetrically. Parapelvic cysts are noted bilaterally. There is no retroperitoneal or mesenteric lymphadenopathy. Evaluation of the bowel is limited in the absence of oral contrast. The small and large bowel do not exhibit pathologic distention. Beginning at the splenic flexure and extending to the junction with the sigmoid colon there is a long segment of wall thickening of the descending colon measuring up to 1 cm in thickness (axial image 153). There is a mild degree of stranding of the mesenteric fat surrounding the descending colon. Trace fluid is seen in the dependent right paracolic gutter extending down to the pelvis. There is a midline supraumbilical hernia that is unchanged since the previous CT examination. Hyperattenuating material in the prostate adjacent to the prostate could represent fiducial markers or surgical material. Multilevel degenerative changes of the lower thoracic and lumbar spine are seen . There are no sinister bone lesions in the visualized bones. IMPRESSION: 1. There is inflammatory change and wall thickening involving the descending colon from the splenic flexure to the junction with the sigmoid colon. The differential diagnosis for this includes an infectious or inflammatory etiology. This is also a characteristic distribution of mesenteric ischemia in the inferior mesenteric artery distribution. Please correlate to lactate levels. 2. Widespread mixed attenuation vasculopathy as described in more detail above. In particular the ostia of the bilateral renal arteries appear narrowed. Please correlate to refractory hypertension. 3. Additional chronic, degenerative and iatrogenic findings described in the body of the report.
--- NOTE | 2017-09-27 18:54 | PN ---
Subjective Date of Service: 09/27/17 Interval History: no BM today. does attest to 2/10 pain worse in LLQ. says was present yesterday also with palpation but did not mention then. had resolved ~5pm CT abd angiogram consistent with pattern of ischemic bowel. Objective Active Medications: Acetaminophen (Tylenol Tab*) 650 mg PO Q4H PRN PRN Reason: FEVER/PAIN Amlodipine Besylate (Norvasc Tab*) 5 mg PO DAILY [facility] Last Admin: 09/27/17 09:04 Dose: 5 mg Atorvastatin Calcium (Lipitor*) 20 mg PO DAILY [facility] Last Admin: 09/27/17 09:04 Dose: 20 mg Hydralazine HCl (Apresoline Iv*) 5 mg IV SLOW PU Q6H PRN PRN Reason: BLOOD PRESSURE Last Admin: 09/26/17 16:02 Dose: 5 mg Hydrocortisone (Anusol Hc Supp*) 25 mg [place] BID [facility] Last Admin: 09/27/17 09:04 Dose: 25 mg Ciprofloxacin/Dextrose (Cipro 400 Mg Ivpremix(*)) 400 mg in 200 mls @ 200 mls/ hr IVPB Q12H [facility] Last Admin: 09/27/17 15:57 Dose: 200 mls/hr Metronidazole/Sodium Chloride (Flagyl 500 Mg Ivpb*) 500 mg in 100 mls @ 100 mls /hr IVPB Q8H [facility] Last Admin: 09/27/17 17:07 Dose: 100 mls/hr Ondansetron HCl (Zofran Inj*) 4 mg IV Q6H PRN PRN Reason: NAUSEA Tamsulosin HCl (Flomax Cap*) 0.4 mg PO BEDTIME [facility] Last Admin: 09/26/17 21:44 Dose: 0.4 mg Vital Signs - 8 hr 09/27/17 09/27/17 11:14 15:29 Temperature 97.5 F 98.0 F Pulse Rate 69 62 Respiratory 20 22 Rate Blood Pressure 151/74 148/68 (mmHg) O2 Sat by Pulse 97 97 Oximetry Oxygen Devices in Use Now: None Appearance: NAD Eyes: No Scleral Icterus, PERRLA Ears/Nose/Mouth/Throat: NL Teeth, Lips, Gums, Mucous Membranes Moist Neck: NL Appearance and Movements; NL JVP Respiratory: Symmetrical Chest Expansion and Respiratory Effort, Clear to Auscultation Cardiovascular: NL Sounds; No Murmurs; No JVD Abdominal: - - minimal tenderness LLQ. soft, nondistened. no guarding or rebound. Extremities: No Edema, No Clubbing, Cyanosis Skin: No Rash or Ulcers, No Nodules or Sclerosis Neurological: Alert and Oriented x 3, NL Sensation, NL Muscle Strength and Tone Nutrition: Taking PO's Result Diagrams: 09/27/17 05:42 09/27/17 05:42 Additional Lab and Data: Laboratory Results - last 24 hr 09/27/17 09/27/17 05:42 05:42 WBC 7.5 RBC 3.60 L Hgb 11.6 L Hct 33 L MCV 91 MCH 32 H MCHC 35 RDW 13 Plt Count 138 L MPV 8.7 Neut % (Auto) 76.6 Lymph % (Auto) 13.9 L [place] % (Auto) 7.0 Eos % (Auto) 2.3 Baso % (Auto) 0.2 Absolute Neuts (auto) 5.8 Absolute Lymphs (auto) 1.0 Absolute Monos (auto) 0.5 Absolute Eos (auto) 0.2 Absolute Basos (auto) 0 Absolute Nucleated RBC 0 Nucleated RBC % 0 Sodium 138 L Potassium 3.6 Chloride 108 Carbon Dioxide 23 Anion Gap 7 BUN 12 Creatinine 1.03 Est GFR ( Amer) 88.5 Est GFR (Non-Af Amer) 68.8 BUN/Creatinine Ratio 11.7 Glucose 128 H Calcium 8.7 Microbiology and Other Data: Microbiology 09/25/17 18:10 Urine Urine Culture - Final Assess/Plan/Problems-Billing Assessment: 82 yo male PMH HTN, PAD with RLE stent on brilinta, aspirin (2015), prostate Cancer s/p radiation p/w BRBPR. s/p flex sig with e/o ischemic colitis and radiation proctitis. #Ischemic colitis with hematochezia - appreciate GI assistance. f/u recs - slight abdominal pain, improved; continue serial exams - lactic acid tomorrow. - monitor BMs - advacne to full liquid diet - consideration for Argon proton coagulation on Saturday - continue to hold brilinta (Mahamed Stewart discussed on admission with office ofDr. James (the vascular surgeon) - continue cipro/flagyl - continue hydrocortisone suppository - CT abd/pelvis angiogram with athersclerosis but no high grade stenosis of JANICE in territory of ischemia. #HTN - ramipril 10mg daily held. got CT contrast today. - hydralazine prn - continue amlodipine 5mg, BPs improved. #HLD - continue lipitor 20mg daily #BPH - continue flomax. CODE: FULL Diet: full liquid dispo: medicine inpatient.
[2017-09-27] MEDS: Tamsulosin CAP* 0.4 MG PO SCH (21:09)
[2017-09-28] MEDS: metroNIDAZOLE IV 500 MG/100ML* 500 MG/100 ML BAG IVPB SCH ×3 (01:41→18:16)
[2017-09-28] MEDS: Ciprofloxacin 400MG IVPREMIX(* 400 MG/200 ML BAG IVPB SCH ×2 (05:27→16:54)
[2017-09-28 06:45] LABS: ABS Basophils 0 10^3/ul (0-0.2); ABS Eosinophils 0.3 10^3/ul (0-0.6); ABS Lymphocytes 1.1 10^3/ul (1.0-4.8); ABS Monocytes 0.5 10^3/ul (0-0.8); ABS Neutrophils 4.3 10^3/ul (1.5-7.7); ABS Nucleated RBC 0 10^3/ul; Eosinophil % 4.1 % (0-6); Hematocrit 34 % (42-52); Lymphocyte % 18.3 % (25-47); Mean Corpuscular HGB Conc 35 g/dl (31-36); Mean Corpuscular Hemoglobin 32 pg (27-31); Mean Corpuscular Volume 91 fL (80-94); Mean Platelet Volume 8.4 um3 (7.4-10.4); Nucleated Red Blood Cells % 0; Platelet Count 153 10^3/ul (150-450); Red Blood Count 3.76 10^6/ul (4.0-5.4); Red Cell Distribution Width 13 % (10.5-15); White Blood Count 6.3 10^3/ul (3.5-10.8)
--- NOTE | 2017-09-28 10:23 | PN ---
Subjective Interval History: reported blood in BM w/ mucous this AM hgb stable no pain. had been planned to get arteriogram with his vascular surgeon today as outpatient. he gets anterior thigh pain with walking (had improved then worsened after RLE stent). bleeding intermittently since December 2016. Objective Active Medications: Acetaminophen (Tylenol Tab*) 650 mg PO Q4H PRN PRN Reason: FEVER/PAIN Amlodipine Besylate (Norvasc Tab*) 5 mg PO DAILY [facility] Last Admin: 09/27/17 09:04 Dose: 5 mg Atorvastatin Calcium (Lipitor*) 20 mg PO DAILY [facility] Last Admin: 09/27/17 09:04 Dose: 20 mg Hydralazine HCl (Apresoline Iv*) 5 mg IV SLOW PU Q6H PRN PRN Reason: BLOOD PRESSURE Last Admin: 09/26/17 16:02 Dose: 5 mg Hydrocortisone (Anusol Hc Supp*) 25 mg [place] BID [facility] Last Admin: 09/27/17 21:09 Dose: 25 mg Ciprofloxacin/Dextrose (Cipro 400 Mg Ivpremix(*)) 400 mg in 200 mls @ 200 mls/ hr IVPB Q12H [facility] Last Admin: 09/28/17 05:27 Dose: 200 mls/hr Metronidazole/Sodium Chloride (Flagyl 500 Mg Ivpb*) 500 mg in 100 mls @ 100 mls /hr IVPB Q8H [facility] Last Admin: 09/28/17 01:41 Dose: 100 mls/hr Ondansetron HCl (Zofran Inj*) 4 mg IV Q6H PRN PRN Reason: NAUSEA Tamsulosin HCl (Flomax Cap*) 0.4 mg PO BEDTIME [facility] Last Admin: 09/27/17 21:09 Dose: 0.4 mg Vital Signs - 8 hr 09/28/17 09/28/17 09/28/17 04:16 08:00 08:10 Temperature 97.7 F 98.1 F Pulse Rate 60 71 Respiratory 16 18 14 Rate Blood Pressure 171/77 157/75 (mmHg) O2 Sat by Pulse 97 99 Oximetry Oxygen Devices in Use Now: None Eyes: No Scleral Icterus, PERRLA Ears/Nose/Mouth/Throat: NL Teeth, Lips, Gums Neck: Trachea Midline Respiratory: Symmetrical Chest Expansion and Respiratory Effort, Clear to Auscultation Cardiovascular: NL Sounds; No Murmurs; No JVD, RRR Abdominal: NL Sounds; No Tenderness; No Distention Extremities: No Edema Skin: No Rash or Ulcers Neurological: Alert and Oriented x 3, NL Sensation, NL Muscle Strength and Tone Nutrition: Taking PO's Result Diagrams: 09/28/17 06:28 09/27/17 05:42 Additional Lab and Data: Laboratory Results - last 24 hr 09/28/17 09/28/17 06:28 06:28 WBC 6.3 RBC 3.76 L Hgb 12.0 L Hct 34 L MCV 91 MCH 32 H MCHC 35 RDW 13 Plt Count 153 MPV 8.4 Neut % (Auto) 68.5 Lymph % (Auto) 18.3 L Stephens % (Auto) 8.6 H Eos % (Auto) 4.1 Baso % (Auto) 0.5 Absolute Neuts (auto) 4.3 Absolute Lymphs (auto) 1.1 Absolute Monos (auto) 0.5 Absolute Eos (auto) 0.3 Absolute Basos (auto) 0 Absolute Nucleated RBC 0 Nucleated RBC % 0 Lactic Acid 1.1 Microbiology and Other Data: Microbiology 09/25/17 18:10 Urine Urine Culture - Final Assess/Plan/Problems-Billing Assessment: 82 yo male PMH HTN, PAD with RLE stent (May 2016) on brilinta, aspirin , prostate Cancer s/p radiation p/w BRBPR. s/p flex sig with e/o ischemic colitis and radiation proctitis. #Ischemic colitis with hematochezia - appreciate GI recs. Per Dr. Hua, pt may be able to be discharged tomorrow. - no abdominal pain today, improved; continue serial exams - lactic acid wnl. - monitor BMs - full liquid diet, consider advance tomorrow - there had been some consideration by Dr. Anderson for Argon proton coagulation - continue to hold brilinta (Mahamed Stewart discussed on admission with office of Dr. James (the vascular surgeon) - continue cipro/flagyl - continue hydrocortisone suppository - CT abd/pelvis angiogram with athersclerosis but no high grade stenosis of JANICE in territory of ischemia. #HTN - ramipril 10mg daily held. - hydralazine prn - continue amlodipine 5mg, - BPs controlled. #HLD - continue lipitor 20mg daily #BPH - continue flomax. CODE: FULL Diet: full liquid dispo: medicine inpatient.
[2017-09-28] MEDS: amLODIPine TAB* 5 MG PO SCH (10:30)
[2017-09-28] MEDS: Atorvastatin* 20 MG TAB PO SCH (10:30)
[2017-09-28] MEDS: Hydrocortisone SUPP* 25 MG SUPP (2.5%) PR SCH ×2 (10:31→21:16)
[2017-09-28] MEDS: Tamsulosin CAP* 0.4 MG PO SCH (21:16)
[2017-09-29] MEDS: metroNIDAZOLE IV 500 MG/100ML* 500 MG/100 ML BAG IVPB SCH ×3 (02:22→18:26)
[2017-09-29] MEDS: Ciprofloxacin 400MG IVPREMIX(* 400 MG/200 ML BAG IVPB SCH ×2 (05:48→17:17)
[2017-09-29 06:42] LABS: ABS Basophils 0 10^3/ul (0-0.2); ABS Eosinophils 0.3 10^3/ul (0-0.6); ABS Lymphocytes 1.3 10^3/ul (1.0-4.8); ABS Monocytes 0.5 10^3/ul (0-0.8); ABS Neutrophils 3.3 10^3/ul (1.5-7.7); ABS Nucleated RBC 0 10^3/ul; Eosinophil % 5.3 % (0-6); Hematocrit 35 % (42-52); Hemoglobin 12.4 g/dl (14.0-18.0); Lymphocyte % 24.3 % (25-47); Mean Corpuscular HGB Conc 35 g/dl (31-36); Mean Corpuscular Hemoglobin 32 pg (27-31); Mean Corpuscular Volume 91 fL (80-94); Mean Platelet Volume 8.6 um3 (7.4-10.4); Nucleated Red Blood Cells % 0.1; Platelet Count 155 10^3/ul (150-450); Red Blood Count 3.84 10^6/ul (4.0-5.4); Red Cell Distribution Width 13 % (10.5-15); White Blood Count 5.4 10^3/ul (3.5-10.8)
[2017-09-29] MEDS: Atorvastatin* 20 MG TAB PO SCH (09:10)
[2017-09-29] MEDS: amLODIPine TAB* 5 MG PO SCH (09:10)
[2017-09-29] MEDS: Hydrocortisone SUPP* 25 MG SUPP (2.5%) PR SCH ×2 (09:16→21:05)
--- NOTE | 2017-09-29 17:19 | PN ---
Subjective Date of Service: 09/29/17 Interval History: HOSPITALIST PROGRESS NOTE Patient seen and examined at bedside. Case reviewed and d/w his nurse Camilla Caldwell. Initially patient had no complaints. Denies abdominal pain, appetite is good, denies N/V. Had one bloody BM yesterday morning, but shortly after my visit his nurse called to let me know he had had another bloody BM. Family History: Unchanged from Admission Social History: Unchanged from Admission Past Medical History: Unchanged from Admission Objective Active Medications: Acetaminophen (Tylenol Tab*) 650 mg PO Q4H PRN PRN Reason: FEVER/PAIN Amlodipine Besylate (Norvasc Tab*) 5 mg PO DAILY [facility] Last Admin: 09/29/17 09:10 Dose: 5 mg Atorvastatin Calcium (Lipitor*) 20 mg PO DAILY [facility] Last Admin: 09/29/17 09:10 Dose: 20 mg Hydralazine HCl (Apresoline Iv*) 5 mg IV SLOW PU Q6H PRN PRN Reason: BLOOD PRESSURE Last Admin: 09/26/17 16:02 Dose: 5 mg Hydrocortisone (Anusol Hc Supp*) 25 mg [place] BID [facility] Last Admin: 09/29/17 09:16 Dose: 25 mg Ciprofloxacin/Dextrose (Cipro 400 Mg Ivpremix(*)) 400 mg in 200 mls @ 200 mls/ hr IVPB Q12H [facility] Last Admin: 09/29/17 05:48 Dose: 200 mls/hr Metronidazole/Sodium Chloride (Flagyl 500 Mg Ivpb*) 500 mg in 100 mls @ 100 mls /hr IVPB Q8H [facility] Last Admin: 09/29/17 09:10 Dose: 100 mls/hr Ondansetron HCl (Zofran Inj*) 4 mg IV Q6H PRN PRN Reason: NAUSEA Tamsulosin HCl (Flomax Cap*) 0.4 mg PO BEDTIME [facility] Last Admin: 09/28/17 21:16 Dose: 0.4 mg Vital Signs - 8 hr 09/29/17 11:01 Temperature 97.7 F Pulse Rate 61 Respiratory 18 Rate Blood Pressure 130/94 (mmHg) O2 Sat by Pulse 98 Oximetry Oxygen Devices in Use Now: None Appearance: Very pleasant elderly male lying in bed in NAD. Eyes: No Scleral Icterus Ears/Nose/Mouth/Throat: Mucous Membranes Moist Neck: Trachea Midline Respiratory: Symmetrical Chest Expansion and Respiratory Effort, Clear to Auscultation Cardiovascular: RRR - Normal S1 and S2 Abdominal: NL Sounds; No Tenderness; No Distention Extremities: No Edema Neurological: Alert and Oriented x 3, NL Muscle Strength and Tone Result Diagrams: 09/29/17 06:05 09/27/17 05:42 Assess/Plan/Problems-Billing Assessment: Mr Biswas is an 82 yo M with PMH of HTN, PAD with RLE stent (May 2016) on Brilinta and Aspirin, prostate Cancer s/p radiation who presented to ED with BRBPR, s/p flex sigmoidoscopy compatible with ischemic colitis and radiation proctitis. - Patient Problems (1) Lower GI bleed Comment: - Improving, but still had one episode today. - Denies abdominal pain and wants to advance diet - trial of low fiber diet. - Flex sigmoidoscopy revealed evidence of radiation proctitis and severe ischemic colitis. - CT abd/pelvis angiogram with athersclerosis but no high grade stenosis of JANICE in territory of ischemia. - Aspirin and Brilinta on hold in the setting of bleeding, but plan to start at least Aspirin again as soon as possible. - May need colonoscopy with argon plasma coagulation - will d/w GI. - Hb has been stable around 12 - will continue to monitor. (2) HTN (hypertension) Comment: - Controlled. - Continue Amlodipine. (3) Hyperlipidemia Comment: - Continue Atorvastatin. (4) Peripheral vascular disease Comment: - S/p stent RLE in 2016 - Aspirin and brilinta on hold for now due to risk of bleeding, but will try to start at least Aspirin as soon as possible. (5) DVT prophylaxis Comment: - Pharmacological prophylaxis contraindicated in the setting of GI bleed. - SCDs. (6) Full code status Status and Disposition: Inpatient for management of GI bleed.
[2017-09-29] MEDS: Tamsulosin CAP* 0.4 MG PO SCH (21:05)
[2017-09-30] MEDS: metroNIDAZOLE IV 500 MG/100ML* 500 MG/100 ML BAG IVPB SCH ×2 (01:40→10:39)
[2017-09-30] MEDS: hydrALAZINE IV* 20 MG/ML VIAL IV SLOW PU PRN (04:26)
[2017-09-30] MEDS: Ciprofloxacin 400MG IVPREMIX(* 400 MG/200 ML BAG IVPB SCH (05:23)
[2017-09-30 08:55] LABS: Hematocrit 38 % (42-52); Hemoglobin 13.1 g/dl (14.0-18.0)
[2017-09-30] MEDS: Hydrocortisone SUPP* 25 MG SUPP (2.5%) PR SCH (09:58)
[2017-09-30] MEDS: Atorvastatin* 20 MG TAB PO SCH (09:58)
[2017-09-30] MEDS: amLODIPine TAB* 5 MG PO SCH (09:58)
[2017-09-30 13:04] VITALS: BP 110/75
--- NOTE | 2017-10-01 16:33 | DS ---
CC: Dr. Sherie Lam; Dr. Hua; Dr. Elba James, [facility] , [place], phone# [phone] * DISCHARGE SUMMARY: DATE OF ADMISSION: 09/25/17 DATE OF DISCHARGE: 09/30/17 PRIMARY CARE PROVIDER: Dr. Sherie Lam. INDUSTRIAL ARTS TEACHER: Dr. Hua. VASCULAR SURGEON: Dr. Elba James. DISCHARGE DIAGNOSES: Hematochezia secondary to ischemic colitis and radiation proctitis. SECONDARY DIAGNOSES: 1. Hypertension. 2. Hyperlipidemia. 3. Peripheral arterial disease, status post angioplasty to the left lower extremity and stent to the right lower extremity. 4. Benign prostatic hyperplasia. 5. History of prostate cancer, status post radiation. MEDICATION LIST: 1. Acetaminophen 650 mg p.o. q.4 hours p.r.n. pain. 2. Aspirin 81 mg p.o. daily. 3. Atorvastatin 20 mg p.o. daily. 4. FiberCon 325 mg p.o. daily. 5. Vitamin D 1000 units p.o. daily. 6. Multivitamin with iron 1 tablet p.o. daily. 7. MiraLAX 17 g p.o. on Mondays, Wednesdays, and Saturdays. 8. Ramipril 10 mg p.o. daily. 9. Tamsulosin 0.4 mg p.o. at bedtime. New medications: 1. Ciprofloxacin 500 mg p.o. q.12 hours for 5 more days. 2. Metronidazole 500 mg p.o. q.8 hours for 5 more days. 3. Hydrocortisone suppository 25 mg per rectum b.i.d. Brilinta was discontinued for now. HOSPITAL COURSE: Mr. Biswas is an 82-year-old male with a past medical history stated above that presented to the emergency room on 09/25/17 with complaints of bright red blood per rectum. The patient did have episodes of bright red blood per rectum before, but in small amount and only twice. The episode that prompted his visit started at 1 o'clock in the morning and he had multiple episodes, described hourly passing blood clots. He had no abdominal pain or any other symptoms associated with it. Hemoglobin on the day of admission was 12.9 and he has remained stable around 11 to 12 g. He was admitted for further evaluation. He had a CTA of the abdomen and pelvis showing inflammatory change and wall thickening involving the descending colon from the splenic flexure to the junction with the sigmoid colon. There was also characteristic distribution of mesenteric ischemia in the inferior mesenteric artery distribution. Wide- spread mixed attenuation vasculopathy, in particular the ostia of the bilateral renal arteries appear narrowed. There was coarse calcification at the origin of the celiac trunk and superior mesenteric artery, but patency appears to be maintained. More distally at the superior mesenteric artery, there is eccentric mural calcification causing mild stenosis and also coarse calcification at the origin of the inferior mesenteric artery, but the artery appears to fill adequately with contrast at least at its proximal portion. The patient was seen in consultation by Gastroenterology (Dr. Cynthia Phillips). She suspected the patient probably had radiation proctitis as the etiology of his rectal bleeding and she recommended flexible sigmoidoscopy that revealed friable tissue distally in the rectum with some mild oozing noted from radiation proctitis. This extended up to about 5 cm from the anus. From 5 cm to 30 cm, it was normal- appearing tissue with minimal blood noted. From 30 to 50 cm from the anus, there was evidence of severe ischemic colitis. Her recommendation was for IV antibiotics (Cipro, Flagyl), Anusol HC suppositories, and to hold his Brilinta. She felt that if the patient requires phototherapy such as argon plasma coagulation for his radiation proctitis, his Brilinta should be held for a few days, but this is a difficult decision considering the presence of ischemic colitis with his peripheral vascular disease. The patient remained mostly asymptomatic with no abdominal pain, but he did have 2 more episodes of bright red blood per rectum. His H and H continued to be stable. He tolerated liquid diet that was advanced to a low-residue diet. His case was discussed with Dr. Hua and impression at this point is the patient is stable to be discharged home today and considering his significant history of vascular disease, he will go home on a low-dose aspirin, to see Dr. Hua on 10/03/17, to then decide if he will have colonoscopy or further procedures performed. Until then, his Brilinta will be held, but it should be resumed in the near future considering his significant history of peripheral vascular disease. The patient and his were educated about the medication changes and the post - discharge recommendations and they are in agreement with it. They were also educated about symptoms that should prompt his return to the emergency room. PHYSICAL EXAMINATION: Vital Signs: Temperature 97.6, heart rate is 73, respiratory rate is 17, oxygen saturation 97% on room air, blood pressure is 110 /75. General: The patient is a pleasant elderly male, sitting up in a chair, no acute distress. CVS: Normal S1, S2. Regular rate and rhythm. Chest: Breath sounds present bilaterally with no added sounds. Abdomen is soft, nontender, nondistended. Bowel sounds present. Extremities: No edema. Neuro : He is alert, awake, and oriented x3. Able to move all 4 extremities. DIET: Low-fiber diet for 2 weeks. ACTIVITIES: As tolerated. DISPOSITION: To home. STATUS WHILE IN THE HOSPITAL: Inpatient. DISCHARGE FOLLOWUP: The patient was advised to keep his followup with Dr. Hua on 10/03/17 at 9:30 a.m. and our school secretary will be arranging a followup appointment with Dr. Lam. After he sees Dr. Hua, the patient should probably follow up with Dr. James as there might be plan for further vascular procedures in the future. Please keep in mind, this is a summarized version of this patient's hospital stay. If you need more information, please feel free to call me at [phone] or please obtain the full medical records. TIME SPENT: Approximately 45 minutes was spent to complete this discharge. [id number]/CPS #: [id number]
== END 2017-09-30 13:30 | disposition home or self-care (01) | DRG 378 ==
LOC: ED 13:30 → MED 15:17
PROVIDERS: ADMIT Hospitalist; ATTEND Internal Medicine
PROC: 0DJD8ZZ Inspection of Lower Intestinal Tract, Via Natural or Artificial Opening Endoscopic (ICD-10-PCS; principal; 2017-09-25)
DX: K92.1 Melena (principal); K55.9 Vascular disorder of intestine, unspecified; K62.7 Radiation proctitis; I10 Essential (primary) hypertension; E78.5 Hyperlipidemia, unspecified; I73.9 Peripheral vascular disease, unspecified; N40.0 Benign prostatic hyperplasia without lower urinary tract symptoms; Z85.46 Personal history of malignant neoplasm of prostate; Z79.02 Long term (current) use of antithrombotics/antiplatelets; Z79.82 Long term (current) use of aspirin; Z79.899 Other long term (current) drug therapy; Z88.8 Allergy status to other drugs, medicaments and biological substances; Z80.42 Family history of malignant neoplasm of prostate
CPT/HCPCS: 36415; 74174; 80048; 80053; 81003; 81015; 83605; 83690; 85014; 85018; 85025; 85610; 85730; 86850; 86900; 86901; 87086; 99284; A9270-GY; G8978-GP-CH; G8979-GP-CH; G8980-GP-CH; J0360; J0744; J2354; J3490; Q9967

== ENCOUNTER 2018-04-11 09:16 | Observation (INO) | payer MEDICARE, BC ==
--- NOTE | 2018-04-11 09:37 | ED ---
GI/ HPI - HPI Summary HPI Summary: This pt is an 83 y/o [place] [facility] [place] since this morning. Pt reports he has hx of GI bleed for which he was admitted 5 days in the August 2017. states pt had a scope done by Dr. Hua, unsure of what kind. 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 Pt states he has had intermittent spotting during the summer but today it was more than usual. He reports this morning he had a bowel movement and had bloody stools with blood in his underwear. Pt states he had a second bowel movement while in the ED and notes stools were nonbloody. Denies any pain, abd pain, diarrhea, constipation, nausea, vomiting. He has never had a colonoscopy. Pt is only on aspirin, denies any other anticoagulants. Pt was on Effient for one week in the beginning of March for a leg procedure. - History of Current Complaint Chief Complaint: EDGIBleed Time Seen by Provider: 04/11/18 09:29 Stated Complaint: RECTAL BLEEDING Hx Obtained From: Patient, Family/Physical Therapist Assistant Onset/Duration: Started Hours Ago, Still Present Timing: Intermittent, Lasting Weeks Current Severity: None Pain Intensity: 0 - denies any pain Associated Signs and Symptoms: Positive: Bright Red Blood w/Stool, Blood w/ Stool. Negative: Nausea, Vomiting, Constipation, Diarrhea, Fever, Chills, Abdominal Pain Aggravating Factor(s): Nothing Alleviating Factor(s): Nothing - Additional Pertinent History Primary Care Physician: [id number] - Allergy/Home Medications Allergies/Adverse Reactions: Allergies Allergy/AdvReac Type Severity Reaction Status Date / Time clopidogrel Allergy Severe See Comment Verified 04/11/18 09:21 Home Medications: Home Medications Atorvastatin* [Lipitor*] 40 mg PO DAILY 04/11/18 [History Confirmed 04/11/18] Cholecalciferol (Vitamin D3) [Vitamin D3] 1,000 unit PO DAILY 04/11/18 [History Confirmed 04/11/18] Ferrous Sulfate TAB* 325 mg PO MOWEFR 04/11/18 [History Confirmed 04/11/18] Multivitamin [One Daily] 1 tab PO DAILY 04/11/18 [History Confirmed 04/11/18] Polyethylene Glycol 3350* [Miralax*] 17 gm PO MOWEFR 04/11/18 [History Confirmed 04/11/18] PMH/Surg Hx/FS Hx/Imm Hx Endocrine/Hematology History: Denies: Hx Diabetes Cardiovascular History: Denies: Hx Congestive Heart Failure, Hx Hypertension, Hx Pacemaker/ICD History: Denies: Hx Renal Disease Sensory History: Reports: Hx Contacts or Glasses - not with patient Denies: Hx Hearing Aid Opthamlomology History: Reports: Hx Contacts or Glasses - not with patient Psychiatric History: Denies: Hx Panic Disorder - Cancer History Cancer Type, 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 PERIPHERAL STENTING - Rt LEG - 3 STENTS PLACED (OK'D BY DR JAY). CATARACT - RUDOLPH LENS Infectious Disease History: No Infectious Disease History: Denies: Traveled Outside the [place] in Last 30 Days - Family History Known Family History: Negative: Cardiac Disease, Hypertension, Diabetes - Social History Alcohol Use: None Hx Substance Use: No Substance Use Type: Reports: None Hx Tobacco Use: No Smoking Status (MU): Never Smoked Tobacco Review of Systems Negative: Fever, Chills Negative: Chest Pain Gastrointestinal: Other - rectal bleeding, bloody stools Negative: Abdominal Pain, Vomiting, Diarrhea, Nausea, Other - constipation Musculoskeletal: Negative Skin: Negative All Other Systems Reviewed And Are Negative: Yes Physical Exam - Summary Physical Exam Summary: VITAL SIGNS: Reviewed. GENERAL: Patient is a well-developed and nourished male who is lying comfortable in the stretcher. Patient is not in any acute respiratory distress. HEAD AND FACE: No signs of trauma. No ecchymosis, hematomas or skull depressions. No sinus tenderness. EYES: PERRLA, EOMI x 2, No injected conjunctiva, no nystagmus. EARS: Hearing grossly intact. Ear canals and tympanic membranes are within normal limits. MOUTH: Oropharynx within normal limits. NECK: Supple, trachea is midline, no adenopathy, no JVD, no carotid bruit, no c- spine tenderness, neck with full ROM. CHEST: Symmetric, no tenderness at palpation LUNGS: Clear to auscultation bilaterally. No wheezing or crackles. CVS: Regular rate and rhythm, S1 and S2 present, no murmurs or gallops appreciated. ABDOMEN: Soft, non-tender. No signs of distention. No rebound, no guarding, and no masses palpated. Bowel sounds are normal. RECTAL EXAM: No hemorrhoids, no gross blood, no melena. EXTREMITIES: FROM in all major joints, no edema, no cyanosis or clubbing. NEURO: Alert and oriented x 3. No acute neurological deficits. Speech is normal and follows commands. SKIN: Dry and warm Triage Information Reviewed: Yes Vital Signs On Initial Exam: Initial Vitals Temp Pulse Resp BP Pulse Ox 97.0 F 87 16 152/97 98 04/11/18 09:17 04/11/18 09:17 04/11/18 09:17 04/11/18 09:17 04/11/18 09:17 Vital Signs Reviewed: Yes Diagnostics - Vital Signs Vital Signs Temp Pulse Resp BP Pulse Ox 04/11/18 09:17 97.0 F 87 16 152/97 98 - Laboratory Result Diagrams: 04/12/18 07:13 04/11/18 10:15 Lab Statement: Any lab studies that have been ordered have been reviewed, and results considered in the medical decision making process. - EKG 10:00 Cardiac Rate: NL - at 62 bpm EKG Rhythm: Sinus Rhythm EKG Interpretation: No ST elevations. T wave inversion in lead III. GIGU Course/Dx - Course Assessment/Plan: This pt is an 83 y/o male [place] [facility] [place] bleeding since this morning. Pt reports he has hx of GI bleed for which he was admitted 5 days in the August 2017. states pt had a scope done by Dr. Hua, unsure of what kind. 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 Pt states he has had intermittent spotting during the summer but today it was more than usual. He reports this morning he had a bowel movement and had bloody stools with blood in his underwear. Pt states he had a second bowel movement while in the ED and notes stools were nonbloody. Denies any pain, abd pain, diarrhea, constipation, nausea, vomiting. He has never had a colonoscopy. Pt is only on aspirin, denies any other anticoagulants. Pt was on Effient for one week in the beginning of March for a leg procedure. Blood work without any significant abnormality except for wbc's of 5, hemoglobin 12.3, hematocrit 36, MCV is 92 and the platelets are 182. BUN and creatinine are within normal limits. In the ED course the patient was placed on a cardiac technician and IV fluids were started. Patient was also given Protonix. Patient continues to be hemodynamically stable. I discussed my physical exam, findings and test results with Dr. Navarro from the hospitalist services and he agrees to admit patient to his services. Patient is hemodynamically stable, alert and oriented x 3. - Diagnoses Provider Diagnoses: GI bleed - Physician Notifications Discussed Care Of Patient With: Shreyas Navarro - hospitalist Time Discussed With Above Provider: 12:39 Instructed by Provider To: Admit As Inpatient Discharge - Sign-Out/Discharge Documenting (check all that apply): Patient Departure - [place] [facility] [place] imaging exams completed and their final reports reviewed: No Studies - Discharge Plan Condition: Stable Disposition: ADMITTED TO [facility] - Billing Disposition and Condition Condition: STABLE Disposition: Admitted to [facility] - Attestation Statements Document Initiated by Scribe: Yes Documenting Scribe: Eileen Garrett Provider For Whom Roscoeibe is Documenting (Include Credential): Tevin Guajardo MD Scribe Attestation: I, Eileen Garrett, scribed for Tevin Guajardo MD on 04/12/18 at 0838. Scribe Documentation Reviewed: Yes Provider Attestation: The documentation as recorded by the Eileen salinas accurately reflects the service I personally performed and the decisions made by me, Tevin Guajardo MD
[2018-04-11] MEDS ORDERED: NS 0.9% 1000 ML* 1,000 ML IV ONE (09:48)
[2018-04-11 10:26] LABS: ABS Basophils 0 10^3/ul (0-0.2); ABS Eosinophils 0.1 10^3/ul (0-0.6); ABS Monocytes 0.4 10^3/ul (0-0.8); ABS Neutrophils 3.5 10^3/ul (1.5-7.7); ABS Nucleated RBC 0 10^3/ul; Eosinophil % 1.6 % (0-6); Hematocrit 36 % (42-52); Hemoglobin 12.3 g/dl (14.0-18.0); Lymphocyte % 19.4 % (25-47); Mean Corpuscular HGB Conc 34 g/dl (31-36); Mean Corpuscular Hemoglobin 32 pg (27-31); Mean Corpuscular Volume 92 fL (80-94); Nucleated Red Blood Cells % 0; Platelet Count 182 10^3/ul (150-450); Red Blood Count 3.89 10^6/ul (4.00-5.40); Red Cell Distribution Width 14 % (10.5-15)
[2018-04-11 10:39] LABS: INR 0.96 (0.77-1.02)
[2018-04-11 10:50] LABS: EGFR Non-African American 74.4 (>60)
[2018-04-11] MEDS ORDERED: Ramipril CAP* 10 MG PO ONE (13:51)
[2018-04-11] MEDS ORDERED: Pantoprazole IV* 40 MG IV ONE (14:06)
--- NOTE | 2018-04-11 17:02 | ADMNOTE ---
Subjective Date of Service: 04/11/18 Interval History: ADMISSION HISTORY AND PHYSICAL EXAM: Allergies Allergy/AdvReac Type Severity Reaction Status Date / Time clopidogrel Allergy Severe See Comment Verified 04/11/18 09:21 Home Medications Medication Instructions Recorded Confirmed Type Aspirin EC TAB* [Ecotrin EC Low 81 mg PO DAILY 10/26/15 04/11/18 History Dose 81 MG*] Tamsulosin CAP* [Flomax CAP*] 0.4 mg PO BEDTIME 10/26/15 04/11/18 History Calcium Polycarbophil TAB* 625 mg PO BID 09/25/17 04/11/18 History [Fibercon TAB*] Acetaminophen TAB* [Tylenol TAB*] 650 mg PO Q4H PRN tab 09/30/17 04/11/18 Rx Atorvastatin* [Lipitor*] 40 mg PO DAILY 04/11/18 04/11/18 History Cholecalciferol (Vitamin D3) 1,000 unit PO DAILY 04/11/18 04/11/18 History [Vitamin D3] Ferrous Sulfate TAB* 325 mg PO MOWEFR 04/11/18 04/11/18 History Multivitamin [One Daily] 1 tab PO DAILY 04/11/18 04/11/18 History Polyethylene Glycol 3350* 17 gm PO MOWEFR 04/11/18 04/11/18 History [Miralax*] HPI: The patient has not had rectal bleeding since his discharge 09/30/17 until this AM when he awoke with blood in his shorts. He had 2 BM's after that with no blood, but had some bleeding in his hospital room today. No pain. He is awaiting consultation with a vascular surgeon in [place] to fix his R leg claudication. Review of Systems - Measurements Intake and Output: Intake and Output Last 24 Hours 04/09/18 04/10/18 04/11/18 04/12/18 06:59 06:59 06:59 06:59 Intake Total 1000 Output Total 600 Balance 400 Weight 197 lb 9.6 oz Intake: IV Fluids 1000 Output: Urine 600 - Review of Systems Constitutional Symptoms: Negative: Weight Gain, Weight Loss, Weakness, Fatigue, Fever, Night Sweats, Unexplained Falls, Other Dermatology: Positive: Normal HEENT: Positive: Normal Eyes: Positive: Normal Thyroid: Positive: Normal Pulmonary: Positive: Normal Cardiology: Positive: Normal Gastroenterology: Positive: Blood in Stools Genital - Urinary: Positive: Normal Musculoskeletal: Negative: Joint Pain, Joint Stiffness, Arthritis, Osteoporosis, Low Back Pain , Sciatica, Joint Deformities, Kyphoscoliosis, Other Endocrinology: Positive: Normal Hematologic/Lymphatic: Positive: Anemia Neurology: Positive: Normal Psychiatry: Positive: Normal Allergic/Immunologic: Negative: Hx Anaphylaxis, Hx Angioedema, Hx Environmental, Hx Seasonal, Athsma, Hx HIV, Immunocompromise, Swollen Glands LymphNodes, Other Objective Vital Signs - 8 hr 04/11/18 04/11/18 04/11/18 09:17 09:58 10:00 Temperature 97.0 F Pulse Rate 87 65 64 Respiratory 16 Rate Blood Pressure 152/97 (mmHg) O2 Sat by Pulse 98 97 98 Oximetry 04/11/18 04/11/18 04/11/18 11:18 11:20 11:37 Temperature 97.8 F Pulse Rate 59 63 65 Respiratory 17 Rate Blood Pressure 166/94 166/94 (mmHg) O2 Sat by Pulse 99 99 Oximetry 04/11/18 04/11/18 04/11/18 11:49 12:00 12:19 Temperature Pulse Rate 57 56 58 Respiratory Rate Blood Pressure 185/110 175/102 (mmHg) O2 Sat by Pulse 99 99 98 Oximetry 04/11/18 04/11/18 04/11/18 12:49 13:00 13:19 Temperature Pulse Rate 61 71 59 Respiratory Rate Blood Pressure 183/100 201/106 (mmHg) O2 Sat by Pulse 98 99 98 Oximetry 04/11/18 04/11/18 04/11/18 13:49 14:00 14:58 Temperature 98 F Pulse Rate 59 72 61 Respiratory 17 Rate Blood Pressure 186/96 165/132 (mmHg) O2 Sat by Pulse 98 99 98 Oximetry 04/11/18 04/11/18 04/11/18 15:03 15:04 15:15 Temperature 98 F Pulse Rate 61 Respiratory 17 Rate Blood Pressure 179/88 165/132 151/87 (mmHg) O2 Sat by Pulse 98 Oximetry Oxygen Devices in Use Now: None Appearance: Alert, supine on ED stretcher. In good spirits. Looks comfortable. Eyes: No Scleral Icterus Ears/Nose/Mouth/Throat: Clear Oropharnyx, Mucous Membranes Moist Neck: NL Appearance and Movements; NL JVP, No Thyroid Enlargement, Masses Respiratory: Symmetrical Chest Expansion and Respiratory Effort, Clear to Auscultation, Clear to Percussion Cardiovascular: NL Sounds; No Murmurs; No JVD, RRR, No Edema, - Abdominal: NL Sounds; No Tenderness; No Distention, No Hepatosplenomegaly, - Extremities: No Edema, No Clubbing, Cyanosis, - Skin: No Rash or Ulcers, No Nodules or Sclerosis, - Neurological: Alert and Oriented x 3, NL Sensation Result Diagrams: 04/12/18 07:13 04/11/18 10:15 Microbiology and Other Data: Microbiology 04/11/18 09:40 Stool Occult Blood (GEO) - Final Stool Assess/Plan/Problems-Billing Assessment: - Patient Problems (1) Lower GI bleed Current Visit: No Status: Acute Code(s): K92.2 - GASTROINTESTINAL HEMORRHAGE , UNSPECIFIED SNOMED Code(s): 95328892 Comment: Flex sigmoidoscopy 09/25/17 revealed evidence of radiation proctitis and severe ischemic colitis. No change in H&H. Fup Javid Tavera. No change in meds. (2) Peripheral vascular disease Current Visit: No Status: Acute Code(s): I73.9 - PERIPHERAL VASCULAR DISEASE , UNSPECIFIED SNOMED Code(s): 009245081 Comment: Continue ASA. Fup PCP and vascular surgeon as previously planned. (3) Hyperlipidemia Current Visit: No Status: Acute Code(s): E78.5 - HYPERLIPIDEMIA, UNSPECIFIED SNOMED Code(s): 37125375 Comment: - Continue Atorvastatin. (4) HTN (hypertension) Current Visit: No Status: Acute Code(s): I10 - ESSENTIAL (PRIMARY) HYPERTENSION SNOMED Code(s): 58092956 Comment: Pt advised to discuss with PCP and to see his PC within 1 week.
[2018-04-11] MEDS ORDERED: Acetaminophen TAB* 325 MG PO PRN (17:09)
[2018-04-11] MEDS ORDERED: Ferrous Sulfate TAB* 325 MG PO SCH (18:00)
[2018-04-11] MEDS ORDERED: Polyethylene Glycol 3350* 17 GM PACKET PO SCH (18:00)
[2018-04-11 18:05] LABS: ABS Basophils 0 10^3/ul (0-0.2); ABS Eosinophils 0.1 10^3/ul (0-0.6); ABS Lymphocytes 1.2 10^3/ul (1.0-4.8); ABS Monocytes 0.4 10^3/ul (0-0.8); ABS Neutrophils 3.7 10^3/ul (1.5-7.7); ABS Nucleated RBC 0 10^3/ul; Eosinophil % 2.3 % (0-6); Hematocrit 35 % (42-52); Lymphocyte % 21.7 % (25-47); Mean Corpuscular HGB Conc 34 g/dl (31-36); Mean Corpuscular Hemoglobin 32 pg (27-31); Mean Corpuscular Volume 93 fL (80-94); Mean Platelet Volume 8.1 um3 (7.4-10.4); Nucleated Red Blood Cells % 0; Platelet Count 184 10^3/ul (150-450); Red Cell Distribution Width 14 % (10.5-15); White Blood Count 5.3 10^3/ul (3.5-10.8)
[2018-04-11] MEDS ORDERED: Tamsulosin CAP* 0.4 MG PO SCH (21:00)
[2018-04-11] MEDS: Calcium Polycarbophil TAB* 625 MG PO SCH (22:09)
[2018-04-12 07:30] LABS: ABS Basophils 0 10^3/ul (0-0.2); ABS Eosinophils 0.1 10^3/ul (0-0.6); ABS Lymphocytes 1.1 10^3/ul (1.0-4.8); ABS Monocytes 0.4 10^3/ul (0-0.8); ABS Neutrophils 3.4 10^3/ul (1.5-7.7); ABS Nucleated RBC 0 10^3/ul; Eosinophil % 2.9 % (0-6); Hematocrit 37 % (42-52); Hemoglobin 12.7 g/dl (14.0-18.0); Lymphocyte % 21.3 % (25-47); Mean Corpuscular HGB Conc 35 g/dl (31-36); Mean Corpuscular Hemoglobin 32 pg (27-31); Mean Corpuscular Volume 91 fL (80-94); Mean Platelet Volume 7.9 um3 (7.4-10.4); Nucleated Red Blood Cells % 0; Platelet Count 168 10^3/ul (150-450); Red Blood Count 4.03 10^6/ul (4.00-5.40); Red Cell Distribution Width 14 % (10.5-15)
[2018-04-12 08:42] VITALS: BP 150/90
[2018-04-12] MEDS: Calcium Polycarbophil TAB* 625 MG PO SCH (08:45)
[2018-04-12] MEDS ORDERED: Cholecalciferol TAB* 1000 UNITS PO SCH (09:00)
[2018-04-12] MEDS ORDERED: Atorvastatin* 40 MG TAB PO SCH (09:00)
--- NOTE | 2018-04-12 22:36 | DS ---
CC: Dr. Lam; Dr. Hua DISCHARGE SUMMARY: DATE OF ADMISSION: 04/11/18 DATE OF DISCHARGE: 04/12/18 HOSPITAL COURSE: This 83-year-old man presenting with rectal bleeding. The history is detailed in my admission note. He had woke up with some blood in his shorts and subsequently had two bowel movements without blood. He had a little passage of blood in the hospital but the last 18 hours or so had no bleeding. His hematocrit in the hospital on 3 measurements was 36, 35, and 37 and the last one being the 37. I note the patient was here for the same problem on 09/25/17. He had flexible sigmoidoscopy to the mid transverse colon. He had radiation proctitis and some ischemic colitis. He did not require transfusion at that time either and had hematocrit readings that were stable and rising in the hospital. The patient's blood pressure readings were somewhat high on the morning of discharge 166/84. He was advised to consult his primary care provider about this as well. The patient is concerned that he has a lot of claudication. He has known peripheral vascular disease and has stents in his legs. He was due to see a vascular surgeon regarding further procedures to help his claudication, which may require him to take antiplatelet agents. He will follow up with Dr. Hua to see what can be done to help him tolerate the antiplatelet agents and in what circumstances he can or cannot take them. FINAL DIAGNOSES: 1. Lower gastrointestinal bleeding likely due to radiation proctitis. 2. Hypertension. 3. Peripheral vascular disease. DISCHARGE MEDICATIONS: 1. Tamsulosin 0.4 mg h.s. 2. Aspirin 81 mg daily. 3. FiberCon 625 mg b.i.d. 4. Acetaminophen 650 mg every 4 hours p.r.n. 5. Polyethylene glycol 17 g every Saturday, Saturday, and Saturday. 6. Ferrous sulfate 325 mg every Saturday, Saturday, and Saturday. 7. Multivitamin 1 daily. 8. Vitamin D3 1000 units daily. 9. Atorvastatin 40 mg daily. DISCHARGE CONDITIONS: good DISCHARGE DISPOSITION: home [id number]/[facility] #: [id number] [facility]
== END 2018-04-12 10:35 | disposition home or self-care (01) ==
LOC: ED 09:16 → MED 12:58
PROVIDERS: ADMIT Internal Medicine; ATTEND Internal Medicine
DX: K62.5 Hemorrhage of anus and rectum (principal); K92.2 Gastrointestinal hemorrhage, unspecified; I10 Essential (primary) hypertension; I73.9 Peripheral vascular disease, unspecified; Z79.899 Other long term (current) drug therapy; K62.7 Radiation proctitis; Z88.8 Allergy status to other drugs, medicaments and biological substances; E78.5 Hyperlipidemia, unspecified
CPT/HCPCS: 36415; 80053; 82270; 85025; 85610; 85730; 86850; 86900; 86901; 93005; 96361; 96374; 99283; A9270-GY; G0378